=== PATIENT | male | born 1945 | race Caucasian/White ===

== ENCOUNTER → 2016-11-12 | Outpatient (CLI) | payer OTHER ==
[~2016-11-12] VITALS: Ht 177.8 cm; Wt 77.3 kg
[~2016-11-12] MED LIST: ADULT LOW DOSE81 MG PO; AMBEREN PO; ASPIRIN325 PO; CARDIZEM CD 18180 M3 PO; CENTRUM SILVER1 EAC2 PO; CLONIDINE0.1 PO; COLACE 100 MG100 MG PO; DILTIAZEM 24HR180 MG PO; DILTIAZEM 24HR360 M1; ELIQUIS5 MG PO; FISH OIL 1,001000 M1 PO; FLAX OIL1000 MG PO; FLOMAX0.4 MG PO; FLONASE 0.05%50 MCG NASAL; HYDROCODON-ACE1 EAC5 PO; LIPITOR 10 MG10 M1 PO; LIPITOR40 MG PO; LYRICA 75 MG CA75 MG PO; MIRALAX255 GM PO; MS CONTIN15 MG PO; NEURONTIN800 MG PO; NORCO 10-325 T1 EACH OR; NORCO 5-325 TA1 EACH PO; PLAVIX 75 MG TA75 M1 PO; PROPAFENONE 22225 M1 PO; TOPROL XL25 MG PO; URINOZINC PROS100 MG PO; ZETIA10 MG PO
--- NOTE | ~2016-11-12 | HPC ---
[facility] [place] [address] PAIN MANAGEMENT CONSULTATION Name: PRANAVMEI L Room #: REG [facility] Louise#: [id number] Admission: 11/12/16 Attend Phys: Jose Bal DO Discharge: Date of : 45 Report #: [id number] THIS REPORT FOR: //name// CC: Manish Bal The patient is a very pleasant 70-year-old gentleman, being treated for symptomatic Guillain-Baker syndrome, neuropathic pain requiring complex medication management. I have been treating him for quite some time. Last visit was 08/13/2016. His last urine drug screen was back in November. He has ongoing neuropathic pain affecting his extremities, feet greater than hands. He has been quite stable on MS Contin 15 mg q. 8 hours. We have tried rotating various medications, ultimately he has been stable on current medication with side effects and/or lack of efficacy with any changes. 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 Nahun Buenrostro. Fortunately, this was benign. Otherwise, the patient notes he has been very stable. Current pain is at 2/10 primarily in hands, feet, legs, and arms "all over", chronic pain, feet worse than hands. States the pain is exacerbated with too hot or too cold, seems to be worse at night. Though, overall, he remains quite functional. We reviewed the fact that opiate medications are being used to provide analgesia adequate to support activities of daily living, not attempting to achieve a specific pain score on the 0-10 Visual Analog Scale. The current opiate medications are providing sufficient analgesia to allow the patient to participate in activities of daily living. The patient is not exhibiting any aberrant behavior suggestive of drug diversion. The patient is not having any adverse reactions to medications. The patient is not suffering from daytime somnolence or mental acuity changes. The patient is managing opiate-induced constipation with appropriate quvh-utf-dwanmoc agents and dietary considerations. The patient was counseled on concern for caution with operating a motor vehicle while using opiate medications. A physical exam was performed and the patient's functional status was evaluated. All patients with back pain were advised against the bed rest greater than 4 days and were advised to return to normal activities. Pain score assessment was noted and the treatment plan was reviewed with the patient. All current medications, both prescribed and OTC were reviewed and reconciled on the electronic medical record. Tobacco screening was accomplished and smoking cessation was advised when indicated. BMI was noted and diet/exercise modification was recommended for all patients following outside normal parameters. I reviewed with the patient today their responsibilities to safeguard prescription medications, reviewed their responsibility to utilize medications only as prescribed by the physician. They are to seek and receive pain [address] [address] PAIN MANAGEMENT CONSULTATION Name: MEI ROCK Room #: REG C[facility] Gil#: [id number] Admission: 11/12/16 Attend Phys: Jose Bal DO Discharge: Date of : 45 Report #: [id number] medications only from 1 physician group ([facility]). They are to use 1 pharmacy and keep the clinic informed if they change pharmacies. Their responsibilities include making followup visits in a timely fashion and to avoid abrupt discontinuation of medication usage. Their responsibilities further include bringing their medications (bottles from the pharmacy with residual pills) to the visit for possible confirmation of pill counts and the patient understands it is their responsibility to submit to random drug screens to ensure both that the medications prescribed are present, and that no other controlled substances are present. All prescriptions provided today were generated electronically. ASSESSMENT: Neuropathic pain requiring complex medication management in a 70-year-old gentleman, body mass index is 24.4 kilograms per meter squared. Vital signs are stable as noted on the EMR. Alert and oriented to person, place, and time. Judged to be a reasonable historian. Cervical range of motion is full. Gait is tandem. Upper and lower extremity strength is preserved. Subjective dysesthesia in his feet. RECOMMENDATION: Continue MS Contin 15 mg q. 8 hours. I have taken the liberty of writing for 3 months of current medications. Follow up at that time, we likely get a urine drug screen at that time as well. No aberrant behavior suggestive for drug diversion, simply complying with our opiate consent to treat contract, we will want a UDS on the chart. <ELECTRONICALLY SIGNED> By: Jose Bal DO 11/19/16 [id number] [id number] Jose Bal DO /nt
[2016-11-12 11:28] VITALS: BP 137/89
== END | disposition home or self-care (01) ==
LOC: PAIN 06:47
DX: M79.2 Neuralgia and neuritis, unspecified (principal)

== ENCOUNTER → 2017-05-13 | Outpatient (CLI) | payer OTHER ==
[~2017-05-13] VITALS: Ht 177.8 cm; Wt 74.6 kg
[2017-05-13 10:53] VITALS: BP 163/92
== END | disposition home or self-care (01) ==
LOC: PAIN 06:42
DX: G62.9 Polyneuropathy, unspecified (principal); I25.10 Atherosclerotic heart disease of native coronary artery without angina pectoris; I21.3 ST elevation (STEMI) myocardial infarction of unspecified site

== ENCOUNTER → 2017-08-15 | Outpatient (CLI) | payer OTHER ==
[~2017-08-15] VITALS: Ht 177.8 cm; Wt 73.8 kg
--- NOTE | ~2017-08-15 | HPC ---
[facility] [address] [place] [address] PAIN MANAGEMENT CONSULTATION Name: SIMILISSETHGERIMEI L Room #: REG [facility] Judd.#: [id number] Admission: 08/15/17 Attend Phys: Jose Bal DO Discharge: Date of : 45 Report #: [id number] THIS REPORT FOR: //name// CC: Manish Bal HISTORY OF PRESENT ILLNESS: The patient is a very pleasant 71-year-old gentleman, long known to the pain clinic, being treated for chronic pain syndrome, neuropathic pain component status post rather dramatic Guillain-Lone Wolf presentation following a flu shot back in 2009. The patient has been stable on MS Contin 15 mg t.i.d. for many years. We have tried weaning this and tried very other agents, all with increasing pain. Returns to pain clinic today noting medications continue to provide sufficient analgesia to participate in activities of daily living. He has pain in his hands, feet, arms and legs; dull, aching sensation and rates it 1-2 on a VAS. He continues to work on his vintage vehicles, he has a 1929 [employer] Model T pickup and I believe a Scales Model A as well. He states he does not have any problems with daytime somnolence, mental acuity changes and constipation. We reviewed the fact that opiate medications are being used to provide analgesia adequate to support activities of daily living, not attempting to achieve a specific pain score on the 0-10 Visual Analog Scale. The current opiate medications are providing sufficient analgesia to allow the patient to participate in activities of daily living. The patient is not exhibiting any aberrant behavior suggestive of drug diversion. The patient is not having any adverse reactions to medications. The patient is not suffering from daytime somnolence or mental acuity changes. The patient is managing opiate-induced constipation with appropriate qjob-qyq-jqiijcu agents and dietary considerations. The patient was counseled on concern for caution with operating a motor vehicle while using opiate medications. A physical exam was performed and the patient's functional status was evaluated. All patients with back pain were advised against the bed rest greater than 4 days and were advised to return to normal activities. Pain score assessment was noted and the treatment plan was reviewed with the patient. All current medications, both prescribed and OTC were reviewed and reconciled on the electronic medical record. Tobacco screening was accomplished and smoking cessation was advised when indicated. BMI was noted and diet/exercise modification was recommended for all patients following outside normal parameters. I reviewed with the patient today their responsibilities to safeguard prescription medications, reviewed their responsibility to utilize medications only as prescribed by the physician. They are to seek and receive pain medications only from 1 physician group ( [facility]). They are to use [address] [place] [address] PAIN MANAGEMENT CONSULTATION Name: MEI ROCK Room #: REG [facility] Gil#: [id number] Admission: 08/15/17 Attend Phys: Jsoe Bal DO Discharge: Date of : 45 Report #: [id number] pharmacy and keep the clinic informed if they change pharmacies. Their responsibilities include making followup visits in a timely fashion and to avoid abrupt discontinuation of medication usage. Their responsibilities further include bringing their medications (bottles from the pharmacy with residual pills) to the visit for possible confirmation of pill counts and the patient understands it is their responsibility to submit to random drug screens to ensure both that the medications prescribed are present, and that no other controlled substances are present. All prescriptions provided today were generated electronically. PHYSICAL EXAMINATION: Relatively unchanged. A 71-year-old gentleman, BMI is 23.3 kilograms per meter squared. Alert and oriented to person, place and time, judged to be a reasonable historian. Vital signs show modest hypertension at 168/83, pulse 60, respirations of 14. Rises from chair easily. Gait is tandem. Does have little loss of proprioception in his hands and fingers though again he is able to work with fine objects including small screws. ASSESSMENT: Neuropathic pain, chronic pain syndrome requiring high risk complex medication management secondary to Guillain-Lone Wolf syndrome, now about 8 years ago. RECOMMENDATIONS: Continue current medication unchanged, MS Contin 15 mg 1 t.i.d. Follow up in 3 months for reevaluation. Last random drug screen in April 2016, was positive for prescribed medications and no others. <ELECTRONICALLY SIGNED> By: Jose Bal DO 08/16/17 0949 1456 02 Jose Bal DO /nt
[2017-08-15 12:36] VITALS: BP 168/83
== END | disposition home or self-care (01) ==
LOC: PAIN 07:08
DX: Z76.0 Encounter for issue of repeat prescription (principal); G89.4 Chronic pain syndrome; G61.0 Guillain-Barre syndrome; I10 Essential (primary) hypertension; Z79.899 Other long term (current) drug therapy; Z79.891 Long term (current) use of opiate analgesic; Z98.890 Other specified postprocedural states

== ENCOUNTER → 2018-02-03 | Outpatient (CLI) | payer OTHER ==
[~2018-02-03] VITALS: Ht 177.8 cm; Wt 76.2 kg
--- NOTE | ~2018-02-03 | HPC ---
[facility] [place] [address] PAIN MANAGEMENT CONSULTATION Name: MEI ROCK Room #: REG Robi Gil#: [id number] Admission: 02/03/18 Attend Phys: Jose Bal DO Discharge: Date of : 45 Report #: [id number] THIS REPORT FOR: //name// CC: Manish Bal The patient is a very pleasant 72-year-old gentleman, well known to pain clinic, being treated for neuropathy, status post Guillain-Twilight syndrome, requiring complex medication management. The patient was last seen in pain clinic 11/18/2017. The patient was continued on baseline narcotic unchanged, MS Contin 15 mg q.8 hours. He returns to pain clinic today. In the interval since we last saw him, he did have transurethral resection of the prostate for ostensibly benign prostatic hypertrophy. The patient notes that biopsy remains pending, but his PSA was within normal limits. Subsequent to this, he has been having some pruritus. His skin is unremarkable. No erythema or "blotchy" areas noted. He does note that he changed his shampoo recently. I suspect the latter is the primary source for the pruritus; however, he does have a followup appointment with his urologist. I asked that he follow up with his urologist and mention the pruritus, it may be related to the surgery, though this seems somewhat farfetched. He has a history of atrial fibrillation, is stable on Eliquis. Notes current medications are continuing to enable him to participate in activities of daily living. Pain is fairly well controlled, chronic pain typically is a burning dysesthesia in his feet and hands. PHYSICAL EXAMINATION: Otherwise shows a 72-year-old gentleman, BMI is 24.1 kg/m2. Blood pressure is nominally elevated 156/91, pulse 71, respirations are 14. He is alert and oriented to person, place, and time, judged to be a reasonable historian. Cervical range of motion is full. He has good 2-point tactile discrimination in his hands, though subjective paresthesia. Again, no other changes are noted. Skin integument is intact. We reviewed the fact that opiate medications are being used to provide analgesia adequate to support activities of daily living, not attempting to achieve a specific pain score on the 0-10 Visual Analog Scale. The current opiate medications are providing sufficient analgesia to allow the patient to participate in activities of daily living. The patient is not exhibiting any aberrant behavior suggestive of drug diversion. The patient is not having any adverse reactions to medications. The patient is not suffering from daytime somnolence or mental acuity changes. The patient is managing opiate-induced constipation with appropriate mnxc-wxt-hanmyrv agents and dietary considerations. The patient was counseled on concern for caution with operating [address] [address] PAIN MANAGEMENT CONSULTATION Name: MEI ROCK Room #: REG Robi Gil#: [id number] Admission: 02/03/18 Attend Phys: Jose Bal DO Discharge: Date of : 45 Report #: [id number] a motor vehicle while using opiate medications. A physical exam was performed and the patient's functional status was evaluated. All patients with back pain were advised against the bed rest greater than 4 days and were advised to return to normal activities. Pain score assessment was noted and the treatment plan was reviewed with the patient. All current medications, both prescribed and OTC were reviewed and reconciled on the electronic medical record. Tobacco screening was accomplished and smoking cessation was advised when indicated. BMI was noted and diet/exercise modification was recommended for all patients following outside normal parameters. I reviewed with the patient today their responsibilities to safeguard prescription medications, reviewed their responsibility to utilize medications only as prescribed by the physician. They are to seek and receive pain medications only from 1 physician group ( [facility]). They are to use 1 pharmacy and keep the clinic informed if they change pharmacies. Their responsibilities include making followup visits in a timely fashion and to avoid abrupt discontinuation of medication usage. Their responsibilities further include bringing their medications (bottles from the pharmacy with residual pills) to the visit for possible confirmation of pill counts and the patient understands it is their responsibility to submit to random drug screens to ensure both that the medications prescribed are present, and that no other controlled substances are present. All prescriptions provided today were generated electronically. ASSESSMENT: Symptomatic neuropathic pain, hands and feet, requiring complex medication management. I initially met the patient when he was in the hospital following a profound Guillain-Twilight syndrome. He was left with his paresthesia. We have tried multiple membrane stabilizing agents and opiate analgesics. Ultimately, he has been stable on MS Contin 15 mg q.8 hours. I would like to simply continue this medication. I will follow him up in another 3 months. Last buccal drug swab 11/18/2017, was positive for prescribed medications. We reviewed the opiate consent to treat contract signed greater than a year ago. No problems with daytime somnolence, mental acuity changes, or constipation. No aberrant behavior suggestive for drug diversion. Follow up simply in 3 months. By: [id number] Jose Bal DO /nt
[2018-02-03 09:42] VITALS: BP 156/91
== END ==
LOC: PAIN 07:16
DX: M79.2 Neuralgia and neuritis, unspecified (principal); Z79.899 Other long term (current) drug therapy; I48.91 Unspecified atrial fibrillation

== ENCOUNTER → 2018-05-12 | Outpatient (CLI) | payer OTHER ==
[~2018-05-12] VITALS: Ht 177.8 cm; Wt 76.0 kg
[~2018-05-12] MED LIST changes: +CRESTOR20 MG PO; +NEURONTIN 300300 M1 PO; +OMEPRAZOLE 20 M20 M1 PO
--- NOTE | ~2018-05-12 | HPC ---
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 I have been treating the patient now for nearly a decade. We have tried multiple membrane stabilizing agents, ultimately he has been stable using simply MS Contin 15 mg q.8 hours limit 45 mg per day. He has chronic neuropathic pain affecting hands and feet, has generally been stable with current medication. He returns to pain clinic today. We had a prolonged visit, he was seen from 10:10-10:35, greater than 50% of the 25-minute visit was spent counseling the patient. He is seen in the company of his who is supportive. Notes he has chronic pain in hands and feet, rates about a 2 on a VAS although he has been having increasing pain and aching in his left leg. He has had some chronic weakness in the left leg over the past 6 months. He is having what sounds like more neuropathic or radicular component of pain. States pain is from the left hip to the ankle posterior aspect. PHYSICAL EXAMINATION: Shows 72-year-old gentleman, BMI is 24 kilograms per meter squared. Blood pressure is 143/82, pulse 60, respirations 16. Alert and oriented to person, place and time, judged to be a reasonable historian. Rises from chair using armrest. Has a modestly antalgic gait. Slight decreased left hip flexion and extension as well as plantar flexion strength about 3/5 versus 4/5 on the contralateral, i.e., right side. Right patellar reflex is difficult to elicit at 1/4 in the left. Achilles reflex is absent on the left, 1/4 in the right. Straight leg raise is nominally positive on the left. Passive rotation of the hip is unremarkable. SI joints do not appear to be involved, negative piriformis tensioning. We reviewed the fact that opiate medications are being used to provide analgesia adequate to support activities of daily living, not attempting to achieve a specific pain score on the 0-10 Visual Analog Scale. The current opiate medications are providing sufficient analgesia to allow the patient to participate in activities of daily living. The patient is not exhibiting any aberrant behavior suggestive of drug diversion. The patient is not having any adverse reactions to medications. The patient is not suffering from daytime somnolence or mental acuity changes. The patient is managing opiate-induced constipation with appropriate heav-ano-qylnxkq agents and dietary considerations. The patient was counseled on concern for caution with operating a motor vehicle while using opiate medications. [address] [address] PAIN MANAGEMENT CONSULTATION Name: MEI ROCK Room #: REG [facility] Gil#: [id number] Admission: 05/12/18 Attend Phys: Jose Bal DO Discharge: Date of : 45 Report #: [id number] A physical exam was performed and the patient's functional status was evaluated. All patients with back pain were advised against the bed rest greater than 4 days and were advised to return to normal activities. Pain score assessment was noted and the treatment plan was reviewed with the patient. All current medications, both prescribed and OTC were reviewed and reconciled on the electronic medical record. Tobacco screening was accomplished and smoking cessation was advised when indicated. BMI was noted and diet/exercise modification was recommended for all patients following outside normal parameters. I reviewed with the patient today their responsibilities to safeguard prescription medications, reviewed their responsibility to utilize medications only as prescribed by the physician. They are to seek and receive pain medications only from 1 physician group ( [facility]). They are to use 1 pharmacy and keep the clinic informed if they change pharmacies. Their responsibilities include making followup visits in a timely fashion and to avoid abrupt discontinuation of medication usage. Their responsibilities further include bringing their medications (bottles from the pharmacy with residual pills) to the visit for possible confirmation of pill counts and the patient understands it is their responsibility to submit to random drug screens to ensure both that the medications prescribed are present, and that no other controlled substances are present. All prescriptions provided today were generated electronically. ASSESSMENT: Chronic neuropathic pain affecting hands and feet, status post Guillain-Hershey syndrome in a gentleman with chronic pain syndrome requiring complex medication management. New diagnosis of left lumbar radicular pain. RECOMMENDATIONS: Discussed with the patient today about therapeutic options. We have elected to trial gabapentin 300 mg at bedtime to help with neuropathic pain component. If this affords good relief, we will simply continue. If, however, he tries gabapentin 300 mg at bedtime with no efficacy, we talked briefly about considering a lumbar epidural injection under fluoroscopy. The patient takes Eliquis for chronic atrial fibrillation. He would need to be off this agent for 3 days. He is planning on moving forward with a cholecystectomy in a few weeks. We would like to postpone steroid injection in 4-6 weeks or around the time of any surgery. Ultimately I would like to continue current narcotic medication unchanged, add gabapentin and follow up in 3 months. If radicular symptoms arise, consider a lumbar epidural injection with fluoroscopy if indicated clinically at that time. Thank you for allowing me to participate in the patient's care. We discussed [facility] [address] [place] [address] PAIN MANAGEMENT CONSULTATION Name: MEI ROCK Room #: [facility].#: [id number] Admission: 05/12/18 Attend Phys: Jose Bal DO Discharge: Date of : 45 Report #: [id number] today that I will be leaving the practice and have him follow up with one of the [facility] partners. <ELECTRONICALLY SIGNED> By: Jose Bal DO 05/14/18 0734 1240 1558 Jose Bal DO /nt
[2018-05-12 10:07] VITALS: BP 143/82
== END ==
LOC: PAIN 07:55
DX: M79.2 Neuralgia and neuritis, unspecified (principal); G89.4 Chronic pain syndrome; Z79.899 Other long term (current) drug therapy

== ENCOUNTER → 2018-08-06 | Outpatient (CLI) | payer OTHER ==
[~2018-08-06] VITALS: Ht 177.8 cm; Wt 76.3 kg
--- NOTE | ~2018-08-06 | HPC ---
[facility] [place] [address] PAIN MANAGEMENT CONSULTATION Name: SIMILISSETHGERIMEI Trae Room #: REG [facility]#: [id number] Admission: 08/06/18 Attend Phys: Manish Bal DO Discharge: Date of : 45 Report #: [id number] THIS REPORT FOR: //name// CC: Manish Rebollar DO DATE OF SERVICE: 08/06/2018 REFERRING PHYSICIAN: Manish Rebollar DO CHIEF COMPLAINT: Neuropathy secondary to Guillain [place]. 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 The patient has been followed by my partner, Dr. Jose Bal, for medication management for which he is taking MS Contin 15 mg 3 times a day, total of 45 morphine equivalents a day, along with the use of gabapentin. He returns today in followup visit, requesting potential changes in medication therapy. He is hopeful to increase his gabapentin to improve pain and begin to reduce the use of his MS Contin. He returns to make adjustments in the medication today. He is denying any side effects of somnolence, decreased mental acuity, disorientation and confusion. He is concerned about the recent information about opioids and their long-term effects. He wishes to make changes if at all possible. ALLERGIES: No known drug allergies. CURRENT MEDICATIONS: Gabapentin 300 mg p.o. at bedtime, MS Contin 15 mg 3 times a day, lovastatin 20 mg once a day, MiraLax 17 grams per day, tamsulosin 0.4 mg once a day, metoprolol 25 mg once a day, Zetia 10 mg once a day, Eliquis 5 mg once a day, omeprazole 20 mg once a day. SOCIAL HISTORY: The patient denies tobacco, alcohol, IV or illicit drug use. He is retired. He is unaccompanied today. IMAGING: No new imaging available. PQRS: The patient has osteoarthritic changes in the low back, bilateral hips, bilateral knees. No rheumatoid arthritis. He is placing pain intensity 2/10. He is not a fall risk, has not had a fall in the last 3 months. He is treated for hypertension. He is on blood thinners in the form of Eliquis. He has been on opioids for an extended period of time. He has a low risk of opioid addiction. He is placing his pain impact functional assessment at 7/70, mild interference of daily activities secondary to pain. [address] [address] PAIN MANAGEMENT CONSULTATION Name: MEI ROCK Room #: [facility]#: [id number] Admission: 08/06/18 Attend Phys: Manish Bal DO Discharge: Date of : 45 Report #: [id number] PHYSICAL EXAMINATION: VITAL SIGNS: Blood pressure 132/81, pulse is 56, respiratory rate 16 and unlabored, the patient is 99% on room air. Height 5 feet 10 inches tall, weight 168.2 pounds, BMI calculated 24.1. GENERAL: Well-developed, well-nourished, well-hydrated 72-year-old male, appearing stated age, placing current pain score 2/10. HEENT: Normocephalic, atraumatic. Pupils equal, round, reactive to light. Extraocular muscles are intact. Sclerae nonicteric without injection. Speech fluent. EXTREMITIES: Show no clubbing, no cyanosis, no edema. MUSCULOSKELETAL: The patient does have difficulty rising from the chair. He does have to use arm rest for assistance. He has a modestly antalgic gait. Decreased left hip flexion and extension, as well as plantar flexion when compared to the right. He is intact to light touch from L1 through S2 dermatomes. ASSESSMENT: 1. Peripheral neuropathy. 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 3. Opioid dependency. 4. Complicated medication management. 5. Chronic intractable pain. PLAN: 1. The patient has returned today in followup visit, requesting potential changes in medication therapy to address neuropathic symptoms and reduce his reliance on opioid medication. Would recommend the following changes in medication today with plans to continue titration off of opioids over the next couple of months. Following was discussed and the changes made. 2. The patient will increase his gabapentin, currently he is taking 2 tabs p.o. at bedtime. Recommend escalating his dose 1 tab every week, increasing the neuropathic pain medication to control peripheral neuropathy. Once the patient reaches an efficacious level with the gabapentin, he can then reduce his MS Contin by one tablet. The intention is to attempt to wean the patient off of morphine and other opioids if at all possible with the use of appropriate neuropathic pain medication. The patient is amenable to begin this process. 3. The patient was provided refill prescription on the MS Contin 15 mg dose 1 tab p.o. t.i.d. He will continue this medication as he titrates his gabapentin. Once he reaches an efficacious level with the gabapentin, he can be reducing his morphine 1 tab every 7 days. He was given a prescription of #90, no refills. 4. The patient was given a prescription of gabapentin 300 mg dose. Plan is to increase to 1 tab in the morning, 2 tabs at night. He was given a titration schedule and how to do so. He is to add one tab every 7 days to reach a neuropathic pain level. He will contact us each week to advise whether or not side effects or improvement in symptoms. He was given #90 tablets, no refills. [facility] [address] [place] [address] PAIN MANAGEMENT CONSULTATION Name: MEI ROCK Room #: REG [facility].#: [id number] Admission: 08/06/18 Attend Phys: Manish Bal DO Discharge: Date of : 45 Report #: [id number] 5. We took the liberty of reviewing the patient's MO-TRACS and K-TRACS. There are no aberrant entries in the file or concerning entries in the file. 6. We reviewed the fact that opiate medications are being used to provide analgesia adequate to support activities of daily living, not attempting to achieve a specific pain score on the 0-10 Visual Analog Scale. The current opiate medications are providing sufficient analgesia to allow the patient to participate in activities of daily living. The patient is not exhibiting any aberrant behavior suggestive of drug diversion. The patient is not having any adverse reactions to medications. The patient is not suffering from daytime somnolence or mental acuity changes. The patient is managing opiate-induced constipation with appropriate poyw-vkm-smikbje agents and dietary considerations. The patient was counseled on concern for caution with operating a motor vehicle while using opiate medications. A physical exam was performed and the patient's functional status was evaluated. All patients with back pain were advised against the bed rest greater than 4 days and were advised to return to normal activities. Pain score assessment was noted and the treatment plan was reviewed with the patient. All current medications, both prescribed and OTC were reviewed and reconciled on the electronic medical record. Tobacco screening was accomplished and smoking cessation was advised when indicated. BMI was noted and diet/exercise modification was recommended for all patients following outside normal parameters. I reviewed with the patient today their responsibilities to safeguard prescription medications, reviewed their responsibility to utilize medications only as prescribed by the physician. They are to seek and receive pain medications only from 1 physician group ( [facility]). They are to use 1 pharmacy and keep the clinic informed if they change pharmacies. Their responsibilities include making followup visits in a timely fashion and to avoid abrupt discontinuation of medication usage. Their responsibilities further include bringing their medications (bottles from the pharmacy with residual pills) to the visit for possible confirmation of pill counts and the patient understands it is their responsibility to submit to random drug screens to ensure both that the medications prescribed are present, and that no other controlled substances are present. All prescriptions provided today were generated electronically. 6. The patient will return to our clinic in 1 month. <ELECTRONICALLY SIGNED> By: Manish Bal DO 08/12/18 0727 0735 [id number] Manish Bal DO /nt
[2018-08-06 10:14] VITALS: BP 132/81
== END ==
LOC: PAIN 06:53
DX: G62.9 Polyneuropathy, unspecified (principal); G61.0 Guillain-Barre syndrome; G89.4 Chronic pain syndrome; F11.20 Opioid dependence, uncomplicated; M79.605 Pain in left leg; M79.604 Pain in right leg; M79.602 Pain in left arm; M79.601 Pain in right arm; Z79.899 Other long term (current) drug therapy

== ENCOUNTER → 2018-09-03 | Outpatient (CLI) | payer OTHER ==
[~2018-09-03] VITALS: Ht 177.8 cm; Wt 77.7 kg
--- NOTE | ~2018-09-03 | HPC ---
[facility] [address] [place] [address] PAIN MANAGEMENT CONSULTATION Name: PRANAVMEI Trae Room #: REG [facility] Louise#: [id number] Admission: 09/03/18 Attend Phys: Marlyn Vernon Discharge: Date of : 45 Report #: [id number] THIS REPORT FOR: //name// CC: Marlyn Rebollar DO DATE OF SERVICE: 09/03/2018 CHIEF COMPLAINT: Neuropathy secondary to Guillain-[place]. HISTORY OF PRESENT ILLNESS: The patient is a very pleasant 72-year-old male with a longstanding history of neuropathic pain secondary to his post Guillain-[place] syndrome. He is here for medication management refill. He is taking MS Contin 15 mg 3 times a day to a total of 45 mEq a day and gabapentin 300 mg 1-2 tablets a day. He tells me that he tried to decrease his MS Contin per Dr. Manish Bal's direction to see if he was able to tolerate and/or how his pain level was. The patient told me that he increased his gabapentin to 2 tablets at night and his MS Contin to 1 tablet twice a day, but after 3 days, his legs were burning so bad and his pain score escalated and he was miserable. Therefore, he restarted his morphine 3 times a day and continues his gabapentin 1-2 at bedtime. His pain score today is 2/10. He tells me that his aching and burning is still there, but has significantly decreased after he restarted his original doses of medications. He is able to function with his medications and able to sleep much better at night. He tells me that he does have some constipation, but is having it controlled with MiraLax on a daily basis and no daytime somnolence is noted. ALLERGIES TO CURRENT MEDICATIONS: None. CURRENT MEDICATIONS: Gabapentin 300 mg 2 at bedtime, morphine sulfate ER 15 mg t.i.d., Crestor 20 mg daily, omeprazole 20 mg daily, Eliquis 5 mg twice a day, Zetia 10 mg at bedtime, Toprol-XL 25 mg daily, Flomax at bedtime and MiraLax daily. PQRS: 1. History of osteoarthritic changes in his low back, lateral hips and knees. No rheumatoid arthritis present. 2. Height is 5 feet 10 inches, weight 171, BMI is 24.6. 3. Blood pressure 130/75, pulse is 55, respirations 14, oxygen sat is 100%. Pain intensity score is 2/10. 4. Fall risk. Denies dizziness. Does not need help walking or standing. Has not fallen in the last 3 months. 5. The patient's blood thinner is Eliquis. 6. The patient has a history of hypertension. 7. Opioid therapy greater than 6 weeks, the signed opioid contract on the [address] [address] PAIN MANAGEMENT CONSULTATION Name: MEI ROCK [id number] Admission: 09/03/18 Attend Phys: Marlyn Vernon Discharge: Date of : 45 Report #: [id number] chart. 8. Risk assessment tool is low and his functional assessment is . 9. Recreational drug use, denies; has not ever smoked and does not drink alcohol. PHYSICAL EXAMINATION: GENERAL: Well-developed, well-nourished, well-hydrated 72-year-old, appeared his stated age. Placing his pain score 2/10. HEENT: Normocephalic, atraumatic. Pupils equal, round, reactive to light. Extraocular muscles are intact. Speech is fluent. EXTREMITIES: No clubbing, no cyanosis, no edema. MUSCULOSKELETAL: Slow to raise from the chair. He does use armrest for assistance, modest antalgic gait, intact to touch at L5 through S2 dermatomes. ASSESSMENT: 1. Peripheral neuropathy. 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 3. Opioid dependency. 4. Complex medical management. 5. Chronic intractable pain. We reviewed the fact that opiate medications are being used to provide analgesia adequate to support activities of daily living, not attempting to achieve a specific pain score on the 0-10 Visual Analog Scale. The current opiate medications are providing sufficient analgesia to allow the patient to participate in activities of daily living. The patient is not exhibiting any aberrant behavior suggestive of drug diversion. The patient is not having any adverse reactions to medications. The patient is not suffering from daytime somnolence or mental acuity changes. The patient is managing opiate-induced constipation with appropriate zvtg-nxy-rasnsmp agents and dietary considerations. The patient was counseled on concern for caution with operating a motor vehicle while using opiate medications. A physical exam was performed and the patient's functional status was evaluated. All patients with back pain were advised against the bed rest greater than 4 days and were advised to return to normal activities. Pain score assessment was noted and the treatment plan was reviewed with the patient. All current medications, both prescribed and OTC were reviewed and reconciled on the electronic medical record. Tobacco screening was accomplished and smoking cessation was advised when indicated. BMI was noted and diet/exercise modification was recommended for all patients following outside normal parameters. I reviewed with the patient today their responsibilities to safeguard prescription medications, reviewed their responsibility to utilize medications only as prescribed by the physician. They are to seek and receive pain [address] [place] [address] PAIN MANAGEMENT CONSULTATION Name: MEI ROCK Trae Room #: REG [facility]#: [id number] Admission: 09/03/18 Attend Phys: Marlyn PAM Saulo Discharge: Date of : 45 Report #: [id number] medications only from 1 physician group ( [facility]). They are to use 1 pharmacy and keep the clinic informed if they change pharmacies. Their responsibilities include making followup visits in a timely fashion and to avoid abrupt discontinuation of medication usage. Their responsibilities further include bringing their medications (bottles from the pharmacy with residual pills) to the visit for possible confirmation of pill counts and the patient understands it is their responsibility to submit to random drug screens to ensure both that the medications prescribed are present, and that no other controlled substances are present. All prescriptions provided today were generated electronically. PLAN: 1. The patient returns today for a followup visit for his MS Contin 15 mg 3 times a day. The patient tells me that he did try to taper off as Dr. Bal had recommended 2 tablets twice a day, but his pain score significantly increased and his level of activity decreased. At that time, the patient also tried to increase his gabapentin, so the patient returned to his current stable dose that he has been on for several years. 2. The patient was provided today with a script of MS Contin 15 mg 1 tablet 3 times a day, #90 to be released today for a week and then 8 weeks. 3. The patient was also given gabapentin script, #90 of 300 mg to be filled. 4. The patient's [place] and [place] PDMP were checked. No aberrant refills from other prescribers. The patient seems to be appropriate on time with his medication fill. Current drug screen is on the chart, also which shows a positive for morphine. 5. The patient will be seen in 3 months' time by myself and then, the followup visit with Dr. Manish Bal. The patient is agreeable with this plan of care. 6. The patient seen in collaboration with Dr. Manish Bal. <ELECTRONICALLY SIGNED> By: Marlyn Vernon 09/05/18 0714 1051 [id number] Marlyn Vernon /nt
[2018-09-03 09:54] VITALS: BP 130/75
== END ==
LOC: PAIN 06:45
DX: G90.09 Other idiopathic peripheral autonomic neuropathy (principal); G61.0 Guillain-Barre syndrome; F11.20 Opioid dependence, uncomplicated; G89.4 Chronic pain syndrome; Z79.899 Other long term (current) drug therapy

== ENCOUNTER → 2018-12-09 | Outpatient (CLI) | payer OTHER, BC ==
[~2018-12-09] VITALS: Ht 177.8 cm; Wt 77.6 kg
[~2018-12-09] MED LIST changes: +BENADRYL25 MG PO
[2018-12-09 10:06] VITALS: BP 152/86
--- NOTE | 2018-12-09 10:10 | NUR ---
Pain Clinic Assessment: 1. History of Osteoarthritis: Not Applicable History of Rheumatoid Arthritis: Not Applicable 2. Height: 5 ft. 10 in. 177.8 cm. Weight: 171.0 lb. oz. 77.565 kg. Patient's BMI: 24.5 3. Vital Signs: BP: 152/86 Pulse: 52 Resp: 16 Temp: 02 Sat: 100 ECG Mon: 4. Pain Intensity: 2 5. Fall Risk: Dizziness: N Needs help standing or walking: N Fallen in the last 3 months: N Fall risk comments: 6. Patient on Blood Thinner: ELIQUIS 7. History of Hypertension: Y 8. Opioid Therapy greater than 6 weeks: Y Opiate Contract Signed: 11/18/17 9. Risk Assessment Tool Provided: LOW RISK 10. Functional Assessment Tool: 11. Recreational Drug Use: Never Drug Type: Tobacco Use: Never Smoker Tobacco Type: Amount or Packs/day: How Many Years: Alcohol Use: No Frequency: Quant:
--- NOTE | 2018-12-10 12:49 | HPC ---
[facility] [address] [place] [address] PAIN MANAGEMENT CONSULTATION Name: SIMILISSETHGERIMEI Trae Room #: REG Rob[facility] Gil#: [id number] Admission: 12/09/18 Attend Phys: Marlyn Vernon Discharge: Date of : 45 Report #: [id number] THIS REPORT FOR: //name// CC: Marlyn Rebollar DATE OF SERVICE: 12/09/2018 CHIEF COMPLAINT: Neuropathy secondary to Guillain-[place]. HISTORY OF PRESENT ILLNESS: This is a very pleasant 73-year-old gentleman who returns to the pain clinic today for his long-standing neuropathic pain secondary to status post Guillain-[place] syndrome, for medication refill. He tells me that his MS Contin 15 mg is controlling his pain, rating it as a 2/10 today. He tells me that he has decreased his gabapentin, only taking 1 at night and that is very helpful in letting him sleep throughout the evening. He denies any constipation. He does use MiraLax peyj-fwo-urkcifi for his bowels. He tells me that when he does have pain, it feels in his hands and feet and bilateral legs. ALLERGIES: No known drug allergies. MEDICATIONS: List of current medicines: Crestor 20 mg daily, omeprazole 20 mg daily, Eliquis 5 mg b.i.d., Zetia 10 mg at bedtime, Toprol-XL 25 mg daily, Flomax bedtime, MiraLax daily, gabapentin 300 mg one at bedtime morphine sulfate 15 mg 3 times a day. PQRS: 1. He has a history of arthritic changes in his lower back, hips and knees. Denies rheumatoid arthritis. 2. Height is 5 feet 10, weight is 171 and BMI is 24.5. Vital signs 152/86, pulse is 52, respirations 16 and oxygen sat is 100%. Pain score is 2/10. 3. Fall risk. He denies dizziness. He does not need help walking or standing. He has not fallen in the last 3 months. 4. The patient is on Eliquis and does take medicines for hypertension. His opioid therapy is greater than 6 weeks; therefore, an opioid contract is on the chart. 5. Risk assessment tool is low and his functional assessment is . 6. The patient does not use any recreational drugs. He does not smoke and does not drink alcohol. We checked the prescription monitoring system on this patient and he is filling appropriately from Dr. Manish Bal and is a timely fashion and he tells me that he safeguards all of his medications. We will check a buccal drug screen on him today, as his last one was just one year ago. PHYSICAL EXAMINATION: GENERAL: This is a well-developed, well-nourished and well-hydrated 73[place] [id number] PAIN MANAGEMENT CONSULTATION Name: PRANAVMEI L Room #: REG [facility] Gil#: [id number] Admission: 12/09/18 Attend Phys: Marlyn Vernon Discharge: Date of : 45 Report #: [id number] gentleman, who appears his stated age, placing his pain score as 2/10 today. HEENT: Normocephalic, atraumatic. Pupils equal, round and reactive to light. Extraocular muscles are intact. Speech is fluent. EXTREMITIES: No clubbing, no cyanosis and no edema. MUSCULOSKELETAL: The patient is slow to rise from the chair. He does use the armrest for assistance. He walks with an slightly antalgic gait. His lower extremity strength judged to be 5/5 bilaterally in all major muscle groups. ASSESSMENT: 1. Peripheral neuropathy. 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 3. Opioid dependency. 4. Chronic medical management. 5. Chronic intractable pain. We reviewed the fact that opiate medications are being used to provide analgesia adequate to support activities of daily living, not attempting to achieve a specific pain score on the 0-10 Visual Analog Scale. The current opiate medications are providing sufficient analgesia to allow the patient to participate in activities of daily living. The patient is not exhibiting any aberrant behavior suggestive of drug diversion. The patient is not having any adverse reactions to medications. The patient is not suffering from daytime somnolence or mental acuity changes. The patient is managing opiate-induced constipation with appropriate cakn-rpi-cjknojl agents and dietary considerations. The patient was counseled on concern for caution with operating a motor vehicle while using opiate medications. A physical exam was performed and the patient's functional status was evaluated. All patients with back pain were advised against the bed rest greater than 4 days and were advised to return to normal activities. Pain score assessment was noted and the treatment plan was reviewed with the patient. All current medications, both prescribed and OTC were reviewed and reconciled on the electronic medical record. Tobacco screening was accomplished and smoking cessation was advised when indicated. BMI was noted and diet/exercise modification was recommended for all patients following outside normal parameters. I reviewed with the patient today their responsibilities to safeguard prescription medications, reviewed their responsibility to utilize medications only as prescribed by the physician. They are to seek and receive pain medications only from 1 physician group ( [facility]). They are to use 1 pharmacy and keep the clinic informed if they change pharmacies. Their responsibilities include making followup visits in a timely fashion and to avoid abrupt discontinuation of medication usage. Their responsibilities further include bringing their medications (bottles from the pharmacy with residual pills) to the visit for possible confirmation of pill counts and the patient [facility] [address] [place] [address] PAIN MANAGEMENT CONSULTATION Name: MEI ROCK Room #: REG [facility] Louise#: [id number] Admission: 12/09/18 Attend Phys: Marlyn Vernon Discharge: Date of : 45 Report #: [id number] understands it is their responsibility to submit to random drug screens to ensure both that the medications prescribed are present, and that no other controlled substances are present. All prescriptions provided today were generated electronically. PLAN: 1. The patient returns for followup visit today for a refill of his MS Contin. He takes this 3 times a day. Scripts were given for quantity 90 to be released today, in 4 week and in 8 week. 2. The patient tells me he does not need a refill of his gabapentin since he has weaned down to only 1 tablet at night. He finds this very beneficial for helping him with his sleep for his leg pain. 3. We did check a drug screen on this patient as it had been a year since the last one had been performed. 4. The patient will be seen in 3-month time by myself or by Dr. Bal if need be. The patient is agreeable with this plan of care. 5. The patient is seen in collaboration today with Dr. Manish Bal. <ELECTRONICALLY SIGNED> By: Marlyn Vernon 12/10/18 1249 [id number] Marlyn Vernon /saturnino
== END ==
LOC: PAIN 06:52
DX: G61.0 Guillain-Barre syndrome (principal); G62.9 Polyneuropathy, unspecified; G89.4 Chronic pain syndrome; F11.20 Opioid dependence, uncomplicated; Z79.899 Other long term (current) drug therapy

== ENCOUNTER → 2019-03-04 | Outpatient (CLI) | payer OTHER, BC ==
[~2019-03-04] VITALS: Ht 177.8 cm; Wt 74.8 kg
[2019-03-04 11:09] VITALS: BP 145/92
--- NOTE | 2019-03-04 11:10 | NUR ---
Pain Clinic Assessment: 1. History of Osteoarthritis: Not Applicable History of Rheumatoid Arthritis: Not Applicable 2. Height: 5 ft. 10 in. 177.8 cm. Weight: 165.0 lb. oz. 74.844 kg. Patient's BMI: 23.7 3. Vital Signs: BP: 145/92 Pulse: 54 Resp: 16 Temp: 02 Sat: 99 ECG Mon: 4. Pain Intensity: 2 5. Fall Risk: Dizziness: N Needs help standing or walking: N Fallen in the last 3 months: N Fall risk comments: 6. Patient on Blood Thinner: ELIQUIS 7. History of Hypertension: Y 8. Opioid Therapy greater than 6 weeks: Y Opiate Contract Signed: 11/18/17 9. Risk Assessment Tool Provided: LOW RISK 10. Functional Assessment Tool: /70 11. Recreational Drug Use: Never Drug Type: Tobacco Use: Never Smoker Tobacco Type: Amount or Packs/day: How Many Years: Alcohol Use: No Frequency: Quant:
--- NOTE | 2019-03-05 13:28 | HPC ---
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 HISTORY OF PRESENT ILLNESS: This is a very pleasant 73-year-old gentleman who returns to the pain clinic today for refill of his medications. He tells me that he is doing quite well with his morphine 15 mg controlling his pain, rating at a 2/10. He does take his gabapentin at night and finds this very beneficial for his burning in his feet. He does also have some achy feeling, which is worse when he is too hot or too cold or at nighttime, but he finds his medications very helpful and denies any problems with constipation or daytime sleepiness. He would just like a refill of his medications today. ALLERGIES: No known drug allergies. CURRENT LIST OF MEDICATIONS: Flomax daily, morphine sulfate 15 mg t.i.d., gabapentin 300 mg at bedtime, Crestor 20 mg daily, omeprazole 20 mg daily, Eliquis 5 mg b.i.d., Zetia 10 mg at bedtime, Toprol 25 mg daily and MiraLax daily. PQRS: 1. He has a history of arthritic changes in his lower back, hips and knees. He denies any rheumatoid arthritis. 2. Height is 5 feet 10 inches, weight is 165 and BMI is 23. 3. VITAL SIGNS: Blood signs 145/92, pulse is 54, respirations 16 and oxygen sat is 99. 4. Pain score is 2/10. 5. Fall risk. Denies dizziness. Does not need help with walking or standing. He has not fallen in the last 3 months. 6. The patient is on Eliquis and does take medicines for hypertension. 7. Opioid therapy is greater than 6 weeks; therefore, an opioid signed contract is on the chart. 8. Risk assessment tool is low. Functional assessment is . 9. Recreational drug use, he denies. He is not a smoker and does not drink alcohol. We did check the prescription monitoring system. The patient is filling appropriately for his medications and we did check a buccal drug screen on the last visit that did show that it was negative for his medications, though we have been obtaining some dry specimens and we believe this is the [place] [address] PAIN MANAGEMENT CONSULTATION Name: MEI ROCK Room #: REG Robi Gil#: [id number] Admission: 03/04/19 ������������������ Attend Phys: Marlyn Vernon Discharge: ������������������ Date of : 45 Report #: [id number] recheck this patient's drug screen again at his next visit and repeat it as a urine specimen. The patient does have some problems with urinating due to surgery on his prostate and does take medications, so he will not void before he comes to our clinic. PHYSICAL EXAMINATION: GENERAL: This is a well-developed, well-nourished, well-hydrated 73-year-old gentleman who appears his stated age. Placing his pain score at 2/10 today. HEENT: Normocephalic and atraumatic. Pupils equal, round and reactive to light. Speech is fluent. Extraocular muscles are intact. EXTREMITIES: No clubbing, no cyanosis and no edema. MUSCULOSKELETAL: The patient walks with a slightly antalgic gait. His lower extremity strength judged to be 5/5 bilaterally in all major muscle groups. He is able to rise from seated to standing without difficulty. ASSESSMENT: 1. Peripheral neuropathy. 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 Opioid dependency. 4. Chronic opioid use under terms of written opioid agreement. 5. Chronic intractable pain. We reviewed the fact that opiate medications are being used to provide analgesia adequate to support activities of daily living, not attempting to achieve a specific pain score on the 0-10 Visual Analog Scale. The current opiate medications are providing sufficient analgesia to allow the patient to participate in activities of daily living. The patient is not exhibiting any aberrant behavior suggestive of drug diversion. The patient is not having any adverse reactions to medications. The patient is not suffering from daytime somnolence or mental acuity changes. The patient is managing opiate-induced constipation with appropriate tzia-acc-sqmcpof agents and dietary considerations. The patient was counseled on concern for caution with operating a motor vehicle while using opiate medications. A physical exam was performed and the patient's functional status was evaluated. All patients with back pain were advised against the bed rest greater than 4 days and were advised to return to normal activities. Pain score assessment was noted and the treatment plan was reviewed with the patient. All current medications, both prescribed and OTC were reviewed and reconciled on the electronic medical record. Tobacco screening was accomplished and smoking cessation was advised when indicated. BMI was noted and diet/exercise modification was recommended for all patients following outside normal parameters. I reviewed with the patient today their responsibilities to safeguard prescription medications, reviewed their responsibility to utilize medications [address] [address] PAIN MANAGEMENT CONSULTATION Name: MEI ROCK Room #: REG [facility]#: [id number] Admission: 03/04/19 ������������������ Attend Phys: Marlyn Vernon Discharge: ������������������ Date of : 45 Report #: [id number] only as prescribed by the physician. They are to seek and receive pain medications only from 1 physician group ( [facility]). They are to use 1 pharmacy and keep the clinic informed if they change pharmacies. Their responsibilities include making followup visits in a timely fashion and to avoid abrupt discontinuation of medication usage. Their responsibilities further include bringing their medications (bottles from the pharmacy with residual pills) to the visit for possible confirmation of pill counts and the patient understands it is their responsibility to submit to random drug screens to ensure both that the medications prescribed are present, and that no other controlled substances are present. All prescriptions provided today were generated electronically. PLAN: 1. We discussed treatment options with the patient today. The patient feels that his MS Contin is very helpful in controlling this pain as well as his gabapentin. Both were refilled today of 90 morphine with release today, 4 and 8-week release and gabapentin #90 with no additional refills. 2. We did discuss tapering his medicine if he is able, we had tried to do this in the past. We encouraged him to increase his gabapentin if he decides to try and decrease his morphine by 1 pill, taking it twice a day for a month and then decreasing to once a day for a month, then off. We did provide him with this 3 months of medications and reminded him that we did try to decrease him last year and the patient called numerous times to the clinic and able to decrease his medicines. The patient wants to try this again. 3. We will repeat a urine drug screen at his next visit. 4. The patient is seen in collaboration today with Dr. Manish Bal, [facility]. ��������������������������������������������� <ELECTRONICALLY SIGNED> ���������������������������������������� By: Marlyn Vernon ��������������������������������������������� 03/05/19 1328 [id number] Marlyn Vernon /nt
== END ==
LOC: PAIN 07:21
DX: G61.0 Guillain-Barre syndrome (principal); G62.9 Polyneuropathy, unspecified; I10 Essential (primary) hypertension; G89.4 Chronic pain syndrome; Z79.899 Other long term (current) drug therapy; Z79.891 Long term (current) use of opiate analgesic

== ENCOUNTER → 2019-06-09 | Outpatient (CLI) | payer OTHER, BC ==
[~2019-06-09] VITALS: Ht 177.8 cm; Wt 75.5 kg
[2019-06-09 10:46] VITALS: BP 160/92
--- NOTE | 2019-06-09 10:53 | NUR ---
Pain Clinic Assessment: 1. History of Osteoarthritis: Not Applicable History of Rheumatoid Arthritis: Not Applicable 2. Height: 5 ft. 10 in. 177.8 cm. Weight: 166.4 lb. oz. 75.479 kg. Patient's BMI: 23.9 3. Vital Signs: BP: 160/92 Pulse: 63 Resp: 16 Temp: 02 Sat: 100 ECG Mon: 4. Pain Intensity: 2 5. Fall Risk: Dizziness: N Needs help standing or walking: N Fallen in the last 3 months: N Fall risk comments: 6. Patient on Blood Thinner: ELIQUIS 7. History of Hypertension: Y 8. Opioid Therapy greater than 6 weeks: Y Opiate Contract Signed: 11/18/17 9. Risk Assessment Tool Provided: LOW RISK 10. Functional Assessment Tool: 11. Recreational Drug Use: Never Drug Type: Tobacco Use: Never Smoker Tobacco Type: Amount or Packs/day: How Many Years: Alcohol Use: No Frequency: Quant:
--- NOTE | 2019-06-10 14:20 | HPC ---
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 HISTORY OF PRESENT ILLNESS: This is a very pleasant 73-year-old gentleman who returns to the Pain Clinic today for refill of his medications that he uses to treat his ongoing neuropathy, especially in his arms as a result of his Guillain-[place]. The patient does complain of some leg and foot pain, but the majority of his pain is located in his arms and hands. Pain score is a 2/10 today, which is an aching, burning, pulling sensation that is worse with extreme temperatures or at night, but his medication he finds very beneficial. The patient tells me that he did try to decrease his morphine to see if he could tolerate being without the medicine, but he explains to me that his arm pain became so severe that he had to restart this medication. He states that it is very beneficial in controlling this pain. He does continue on his gabapentin as well. He did find that Lyrica was much more beneficial in relieving some of his pain. He was not on as much pain medicine when he was able to take Lyrica and hopeful that someday his insurance would pay for that medicine again since it was beneficial. The patient would like a refill of his medicines today. He denies any feeling of overmedicated or constipation from this medicine. ALLERGIES: No known drug allergies. CURRENT LIST OF MEDICATIONS: Morphine sulfate 15 mg t.i.d., Flomax 0.4 mg daily, gabapentin 300 mg 1 in the morning and 2 at night, Crestor 20 mg daily, omeprazole 20 mg daily, Eliquis 5 mg b.i.d., Zetia 10 mg at bedtime, Toprol-XL 25 mg daily and MiraLax daily. PQRS: 1. The patient has a history of arthritic changes in his lumbar spine, hips and knees. He denies any rheumatoid arthritis. 2. Height is 5 feet 10 inches, weight is 166. BMI is 23. 3. VITAL SIGNS: Blood pressure 160/92, pulse is 63, respirations 16, oxygen sat is 100. 4. Pain score is 2/10. 5. Denies dizziness, does not need help walking or standing, has not fallen in the last 3 months. 6. The patient is on blood thinners of Eliquis, does take medicine for hypertension. [facility] [address] [place] [address] PAIN MANAGEMENT CONSULTATION Name: MEI ROCK Room #: REG Robi Gil#: [id number] Admission: 06/09/19 ������������������ Attend Phys: Marlyn Vernon Discharge: ������������������ Date of : 45 Report #: [id number] 7. Opiate therapy is greater than 6 weeks; therefore, an opioid signed contract is on the chart. Risk assessment tool is low. Functional assessment is . 8. Recreational drug use, he denies. He is not a smoker and does not drink alcohol. We did check the prescription monitoring system. The patient is filling appropriately for his medications. He did give us a random drug screen today, specimen for verification of his medications. PHYSICAL EXAMINATION: GENERAL: Well-developed, well-nourished, well-hydrated 73-year-old gentleman who appears his stated age, placing his current pain score today at 2/10. HEENT: Normocephalic, atraumatic. Pupils equal, round and reactive to light. Speech is fluent. Extraocular muscles are intact. EXTREMITIES: No clubbing, no cyanosis, no edema. MUSCULOSKELETAL: He walks with a slightly antalgic gait. His lower extremity strength judged to be 5/5 in all major muscle groups. Rises from sitting to standing without any difficulty. Complains of numbness and burning in his bilateral arms to his fingers. ASSESSMENT: 1. Peripheral neuropathy. 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 3. Opioid dependency. 4. Chronic opioid use under terms of written opioid agreement. 5. Chronic intractable pain. We reviewed the fact that opiate medications are being used to provide analgesia adequate to support activities of daily living, not attempting to achieve a specific pain score on the 0-10 Visual Analog Scale. The current opiate medications are providing sufficient analgesia to allow the patient to participate in activities of daily living. The patient is not exhibiting any aberrant behavior suggestive of drug diversion. The patient is not having any adverse reactions to medications. The patient is not suffering from daytime somnolence or mental acuity changes. The patient is managing opiate-induced constipation with appropriate fcww-ixi-ocmiytt agents and dietary considerations. The patient was counseled on concern for caution with operating a motor vehicle while using opiate medications. A physical exam was performed and the patient's functional status was evaluated. All patients with back pain were advised against the bed rest greater than 4 days and were advised to return to normal activities. Pain score assessment was noted and the treatment plan was reviewed with the patient. All current medications, both prescribed and OTC were reviewed and reconciled on the electronic medical record. Tobacco screening was accomplished and smoking cessation was advised when indicated. BMI was noted and diet/exercise [facility] [address] [place] [address] PAIN MANAGEMENT CONSULTATION Name: PRANAVMEI L Room #: REG [facility]#: [id number] Admission: 06/09/19 ������������������ Attend Phys: Marlyn Vernon Discharge: ������������������ Date of : 45 Report #: [id number] modification was recommended for all patients following outside normal parameters. I reviewed with the patient today their responsibilities to safeguard prescription medications, reviewed their responsibility to utilize medications only as prescribed by the physician. They are to seek and receive pain medications only from 1 physician group ( [facility]). They are to use 1 pharmacy and keep the clinic informed if they change pharmacies. Their responsibilities include making followup visits in a timely fashion and to avoid abrupt discontinuation of medication usage. Their responsibilities further include bringing their medications (bottles from the pharmacy with residual pills) to the visit for possible confirmation of pill counts and the patient understands it is their responsibility to submit to random drug screens to ensure both that the medications prescribed are present, and that no other controlled substances are present. All prescriptions provided today were generated electronically. PLAN: 1. We discussed treatment options with the patient today. The patient tells me that he felt Lyrica to be more beneficial than gabapentin. I explained to him that it is not generic though the cost is about the same currently. We will revisit rotating him to Lyrica at his next visit. Hopefully, the cost will have come down and the patient will be able to afford Lyrica since he found that much more beneficial in controlling his neuropathic pain than the gabapentin that he currently stays on gabapentin 300 mg 1 in the morning and 2 at bedtime. Scripts given today for #90 with one additional refill of that medication. 2. The patient did try to decrease his MS Contin, found that he was unable to tolerate the pain, especially in his arms. We will continue to refill his MS Contin 15 mg #90 for release today, 4-week and 8-week. This does place him at 45 morphine mEq, which is below the CDC guidelines. 4. The patient provided with a urine specimen for random drug screen. 5. The patient is seen in collaboration today with Dr. Manish Bal. He will return in 3 months. ��������������������������������������������� <ELECTRONICALLY SIGNED> ���������������������������������������� By: Marlyn Vernon ��������������������������������������������� 06/10/19 1420 [id number] Marlyn Vernon /nt
== END ==
LOC: PAIN 06:56
DX: G62.9 Polyneuropathy, unspecified (principal); G61.0 Guillain-Barre syndrome; F11.20 Opioid dependence, uncomplicated; G89.4 Chronic pain syndrome; Z79.899 Other long term (current) drug therapy

== ENCOUNTER → 2019-09-08 | Outpatient (CLI) | payer OTHER, BC ==
[~2019-09-08] VITALS: Ht 177.8 cm; Wt 74.6 kg
[2019-09-08 10:23] VITALS: BP 146/77
--- NOTE | 2019-09-08 10:31 | NUR ---
Pain Clinic Assessment: 1. History of Osteoarthritis: DENIES "FINGERS/THUMB"? History of Rheumatoid Arthritis: DENIES 2. Height: 5 ft. 10 in. 177.8 cm. Weight: 164.4 lb. oz. 74.571 kg. Patient's BMI: 23.6 3. Vital Signs: BP: 146/77 Pulse: 58 Resp: 14 Temp: 02 Sat: 100 ECG Mon: 4. Pain Intensity: 1 5. Fall Risk: Dizziness: N Needs help standing or walking: N Fallen in the last 3 months: N Fall risk comments: 6. Patient on Blood Thinner: LELE 7. History of Hypertension: Y 8. Opioid Therapy greater than 6 weeks: Y Opiate Contract Signed: 11/18/17 9. Risk Assessment Tool Provided: LOW RISK 10. Functional Assessment Tool: 11. Recreational Drug Use: Never Drug Type: Tobacco Use: Never Smoker Tobacco Type: Amount or Packs/day: How Many Years: Alcohol Use: No Frequency: Quant:
--- NOTE | 2019-09-09 09:25 | HPC ---
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 HISTORY OF PRESENT ILLNESS: This is a very pleasant 73-year-old gentleman who returns to the pain clinic today for refill of his medications that he uses to help treat his ongoing neuropathy in his hands, feet, legs and arms as a result of Guillain-Cresco. He reports a pain score of 1-10. He feels that his current regimen has been working quite well, though he would like to decrease his morphine intake and was wondering about altering his gabapentin with Lyrica as we had discussed in the past. He reports that cold weather makes his pain worse, but his medications are beneficial. He denies any problems with constipation or daytime sleepiness. He has been stable at this dose of morphine for quite some time. The current morphine mEq of 45 MME per day. ALLERGIES: No known drug allergies. CURRENT LIST OF MEDICATIONS: Morphine sulphate ER 15 mg t.i.d., Benadryl p.r.n., gabapentin 300 mg at night, Crestor 20 mg daily, omeprazole 20 mg daily, Eliquis 5 mg b.i.d., Zetia 10 mg at bedtime, Toprol-XL 25 mg daily, Flomax 0.4 mg at bedtime and MiraLax. PQRS: 1. He has a history of arthritic changes in his lumbar spine, hips and knees and hands. Denies any rheumatoid arthritis. 2. Height is 5 feet 10 inches, weight is 164, BMI is 23. 3. Vital signs 146/77, pulse is 58, respirations 14, oxygen sat is 100. 4. Pain score is 1. 5. Denies dizziness, does not need help walking or standing, has not fallen in the last 3 months. 6. The patient is on Eliquis as well as hypertension. 7. Opioid therapy is greater than 6 weeks; therefore, an opiate signed contract is on the chart. His risk assessment tool is low. Functional assessment is . 8. Recreational drug use, he denies. He is not a smoker and does not drink alcohol. According to the prescription monitoring system, the patient is filling [address] [address] PAIN MANAGEMENT CONSULTATION Name: SIMILISSETHGERIMEI L Room #: REG Robi Gil#: [id number] Admission: 09/08/19 Attend Phys: Marlyn Vernon Discharge: Date of : 45 Report #: [id number] appropriately for his medications in a timely fashion. There is a recent drug screen on the chart that is appropriate as well. PHYSICAL EXAMINATION: GENERAL: This is a well-developed, well-nourished 73-year-old gentleman who appears his stated age, placing his current pain score 1/10. He is alert and orientated. HEENT: Normocephalic, atraumatic. Extraocular eye muscles are intact. Mucous membranes are moist. Speech is fluent. EXTREMITIES: No clubbing, no cyanosis, no edema. MUSCULOSKELETAL: He has numbness and burning in his bilateral arms and bilateral legs. He rises from sitting to standing position without difficulty. He walks with a slightly antalgic gait. His lower extremity strength judged to be 5/5 in all major muscle groups. ASSESSMENT: 1. Peripheral neuropathy. 2. Ouxw-Ioyoznif-Ibxwo syndrome. 3. Opioid dependency. 4. Chronic opioid use under terms of written opioid agreement. 5. Chronic intractable pain. We reviewed the fact that opiate medications are being used to provide analgesia adequate to support activities of daily living, not attempting to achieve a specific pain score on the 0-10 Visual Analog Scale. The current opiate medications are providing sufficient analgesia to allow the patient to participate in activities of daily living. The patient is not exhibiting any aberrant behavior suggestive of drug diversion. The patient is not having any adverse reactions to medications. The patient is not suffering from daytime somnolence or mental acuity changes. The patient is managing opiate-induced constipation with appropriate frub-bmn-eunftmm agents and dietary considerations. The patient was counseled on concern for caution with operating a motor vehicle while using opiate medications. A physical exam was performed and the patient's functional status was evaluated. All patients with back pain were advised against the bed rest greater than 4 days and were advised to return to normal activities. Pain score assessment was noted and the treatment plan was reviewed with the patient. All current medications, both prescribed and OTC were reviewed and reconciled on the electronic medical record. Tobacco screening was accomplished and smoking cessation was advised when indicated. BMI was noted and diet/exercise modification was recommended for all patients following outside normal parameters. I reviewed with the patient today their responsibilities to safeguard prescription medications, reviewed their responsibility to utilize medications only as prescribed by the physician. They are to seek and receive pain [address] [address] PAIN MANAGEMENT CONSULTATION Name: MEI ROCK Room #: REG [facility] Manisha#: [id number] Admission: 09/08/19 Attend Phys: Marlyn Vernon Discharge: Date of : 45 Report #: [id number] medications only from 1 physician group ( [facility]). They are to use 1 pharmacy and keep the clinic informed if they change pharmacies. Their responsibilities include making followup visits in a timely fashion and to avoid abrupt discontinuation of medication usage. Their responsibilities further include bringing their medications (bottles from the pharmacy with residual pills) to the visit for possible confirmation of pill counts and the patient understands it is their responsibility to submit to random drug screens to ensure both that the medications prescribed are present, and that no other controlled substances are present. All prescriptions provided today were generated electronically. PLAN: 1. We discussed treatment options with the patient today. We had previously discussed with him rotating his gabapentin to Lyrica. He had had a successful trial with this medication in years past, though it was too expensive, now it is generic, he is wishing to try that medication again and hopeful if it is beneficial, he will be able to decrease his morphine use. We will start the patient at 75 mg Lyrica at bedtime. If this is beneficial, we will increase this medicine to 1 tablet in the afternoon and 1 tablet at bedtime. Scripts given for Lyrica 75 mg, #30 with 2 additional refills. 2. Scripts given for morphine sulfate 15 mg #90 for today 4 week an 8-week release. Again, this places the patient at 45 morphine mEq well under the CDC guidelines. 3. We will try to decrease his morphine if the Lyrica trial is successful, first decreasing to 2 tablets a day, taking at morning and nighttime and then hopefully decreasing further if we will adjust his Lyrica dose. We will do this via telephone or at his next appointment. The patient is seen in collaboration with Dr. Manish Bal who agreed with the care today and collaborated. <ELECTRONICALLY SIGNED> By: Marlyn Vernon 09/09/19 0925 [id number] Marlyn Vernon /nt
== END ==
LOC: PAIN 06:44
DX: G61.0 Guillain-Barre syndrome (principal); G62.9 Polyneuropathy, unspecified; F11.20 Opioid dependence, uncomplicated; G89.4 Chronic pain syndrome; Z79.899 Other long term (current) drug therapy; Z88.8 Allergy status to other drugs, medicaments and biological substances

== ENCOUNTER → 2019-12-08 | Outpatient (CLI) | payer OTHER, BC ==
[~2019-12-08] VITALS: Ht 177.8 cm; Wt 77.8 kg
[~2019-12-08] MED LIST changes: +NEURONTIN 300M300 M2 PO
[2019-12-08 09:58] VITALS: BP 151/83
--- NOTE | 2019-12-08 10:08 | NUR ---
Pain Clinic Assessment: 1. History of Osteoarthritis: DENIES "FINGERS/THUMB"? History of Rheumatoid Arthritis: Not Applicable 2. Height: 5 ft. 10 in. 177.8 cm. Weight: 171.6 lb. oz. 77.837 kg. Patient's BMI: 24.6 3. Vital Signs: BP: 151/83 Pulse: 58 Resp: 14 Temp: 02 Sat: 100 ECG Mon: 4. Pain Intensity: 1 5. Fall Risk: Dizziness: N Needs help standing or walking: N Fallen in the last 3 months: N Fall risk comments: 6. Patient on Blood Thinner: LELE 7. History of Hypertension: Y 8. Opioid Therapy greater than 6 weeks: Y Opiate Contract Signed: 11/18/17 9. Risk Assessment Tool Provided: LOW RISK-0 10. Functional Assessment Tool: 11. Recreational Drug Use: Never Drug Type: Tobacco Use: Never Smoker Tobacco Type: Amount or Packs/day: How Many Years: Alcohol Use: No Frequency: Quant:
--- NOTE | 2019-12-09 15:56 | HPC ---
[facility] [address] [address] PAIN MANAGEMENT CONSULTATION Name: MEI ROCK Room #: REG [facility] Manisha.#: [id number] Admission: 12/08/19 Attend Phys: Marlyn Vernon Discharge: Date of : 45 Report #: [id number] THIS REPORT FOR: cc: Manish Rebollar James L. 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 HISTORY OF PRESENT ILLNESS: This is a very pleasant 74-year-old gentleman who returns for refills of his morphine medication to help treat his ongoing neuropathy in his hands, feet, legs and arms. He is rating a pain score of 1/10 today when he does take his medications. He feels that the Lyrica was not beneficial for him, so he is requesting to go back to gabapentin. He had restarted some old medications that he had at home, taking 1-2 tablets a day and he finds that beneficial. He does report that his pain is exacerbated by cold weather and hot temperatures. Today, he feels like he is doing reasonably well with his current regimen of medications. He denies any problems with constipation or daytime sleepiness. ALLERGIES: No known drug allergies. CURRENT LIST OF MEDICATIONS: MS Contin 15 mg every 8 hours, Benadryl p.r.n., gabapentin 300 mg b.i.d., Crestor, omeprazole, Eliquis, Zetia, metoprolol, Flomax, and MiraLax. PQRS: 1. He has arthritic changes in his lumbar spine, hips and knees. Denies any rheumatoid arthritis. 2. Height is 5 feet 10 inches, weight is 171, BMI is 24. 3. Vital signs 151/83, pulse is 58, respirations 14, oxygen sat is 100. 4. Pain score is 110. 5. Denies dizziness, does not need help walking or standing, has not fallen in the last 3 months. 6. The patient is on Eliquis as well as medicines for hypertension. 7. Opiate therapy is greater than 6 weeks; therefore, an opioid signed contract is on the chart. Risk assessment is low. Functional assessment . 8. Recreational drug use, he denies. He is not a smoker and does not drink alcohol. [address] [address] PAIN MANAGEMENT CONSULTATION Name: PRANAVMEI Trae Room #: REG [facility]#: [id number] Admission: 12/08/19 Attend Phys: Marlyn Vernon Discharge: Date of : 45 Report #: [id number] According to the prescription monitoring system, the patient is filling appropriately for his medications. He is due to fill those later this week. His morphine mEq according to the CDC guidelines is 45. The patient keep his meds safeguarded at all times. PHYSICAL EXAMINATION: GENERAL: This is a well-developed, well-nourished 74-year-old gentleman who appears his stated age, placing his current pain score at 1/10. HEENT: Normocephalic, atraumatic. Extraocular eye muscles are intact. Mucous membranes are moist. EXTREMITIES: No clubbing, no edema, no cyanosis. MUSCULOSKELETAL: The patient has burning and numbness in his bilateral arms and legs. He does walk with a slightly antalgic gait. His lower extremity strength judged to be 5/5 in all major muscle groups. ASSESSMENT: 1. Peripheral neuropathy. 2. Post Guillain-Lowell syndrome. 3. Opioid dependency. 4. Chronic intractable pain. 5. Chronic opioid use under terms of written opioid agreement. We reviewed the fact that opiate medications are being used to provide analgesia adequate to support activities of daily living, not attempting to achieve a specific pain score on the 0-10 Visual Analog Scale. The current opiate medications are providing sufficient analgesia to allow the patient to participate in activities of daily living. The patient is not exhibiting any aberrant behavior suggestive of drug diversion. The patient is not having any adverse reactions to medications. The patient is not suffering from daytime somnolence or mental acuity changes. The patient is managing opiate-induced constipation with appropriate bfcp-chz-wglbrzm agents and dietary considerations. The patient was counseled on concern for caution with operating a motor vehicle while using opiate medications. PLAN: 1. We discussed treatment options with the patient today. The patient is doing quite well on his current regimen of morphine sulfate 15 mg 3 times a day. We will renew this medication for today, 4-week and 8-week release. 2. The patient did not find the Lyrica as helpful as the gabapentin. He has returned to that medication, taking 1 at bedtime every night and on days that his pain is increased, he does take it in the morning as well. We will continue the gabapentin 300 mg, #60 with 2 additional refills. These will be sent electronically as well. [address] [address] PAIN MANAGEMENT CONSULTATION Name: MEI ROCK Room #: REG ABIOLA Louise#: [id number] Admission: 12/08/19 Attend Phys: Marlyn Vernon Discharge: Date of : 45 Report #: [id number] 3. The patient is seen in collaboration with Dr. Manish Bal who collaborated care today and saw the patient as well. The patient will return in 3 months. <ELECTRONICALLY SIGNED> By: Marlyn Vernon 12/09/19 1556 [id number] Marlyn Vernon /saturnino
== END ==
LOC: PAIN 06:36
DX: G61.0 Guillain-Barre syndrome (principal); G62.9 Polyneuropathy, unspecified; F11.20 Opioid dependence, uncomplicated; G89.29 Other chronic pain; Z79.899 Other long term (current) drug therapy

== ENCOUNTER → 2019-12-24 | Outpatient (CLI) | payer OTHER, BC | LOC: SJCVC 13:03 | DX: R00.1 Bradycardia, unspecified (principal); I25.10 Atherosclerotic heart disease of native coronary artery without angina pectoris; I48.0 Paroxysmal atrial fibrillation; I10 Essential (primary) hypertension; E78.5 Hyperlipidemia, unspecified; G61.0 Guillain-Barre syndrome; K21.9 Gastro-esophageal reflux disease without esophagitis; Z79.899 Other long term (current) drug therapy ==

== ENCOUNTER → 2020-02-16 | Outpatient (CLI) | payer OTHER, BC ==
--- NOTE | 2020-02-16 13:08 | HPC ---
[facility] [address] [address] PAIN MANAGEMENT CONSULTATION Name: PRANAVMEI Trae Room #: REG ABIOLA Gil#: [id number] Admission: 02/16/20 Attend Phys: Marlyn Vernon Discharge: Date of : 45 Report #: [id number] THIS REPORT FOR: cc: Manish Rebollar James L. DO Hocker,Marlyn OROZCO ~ CC: Manish Bal DO DATE OF SERVICE: 02/16/2020 This is a tele med appointment on 02/16/2020 due to the coronavirus and the patients history of cardiac issues and Guillain-Bryan from 8:15-8:35. This is a telephone due to not having audiovisual, so the telephone tele med appointment. CHIEF COMPLAINT: Neuropathic pain secondary to Guillain-Bryan. HISTORY OF PRESENT ILLNESS: This is a pleasant 74-year-old gentleman who speaking to me via telephone for his appointment today for treatment for his ongoing neuropathy that he experiences in his hands and his feet. He has had a history of Guillain-Bryan and continues to have neuropathic issues. The patient tells me that he has been feeling quite well lately, he has been staying home through this COVID virus, only going to the grocery store occasionally. He said that he seems to be feeling well during this time, but he is very nervous about going anywhere. He has not even his family, only speaking to them on the phone, watching congregational online. He reports he is nervous about the COVID virus due to his current heart problems and a course is weakened immune system due to his Guillain-Bryan; therefore, we are doing a tele conference with him today. The patient does report that his pain is 0-1 today, mostly in the bottom of his feet. He has not experienced any arm discomfort today. He feels that the morphine sulfate is very beneficial in controlling his pain as well as his gabapentin. He denies any problems with constipation or daytime sleepiness as a result of his medications. The patient reports that he is feeling better since his upper respiratory that he was experienced in December. He wonders slightly if he had COVID at that time, he said his whole body hurt, but though he did not run a fever. He had a sore throat and upper respiratory infection with cough, but he was treated with antibiotics and he has now resolved all those symptoms. He does report that he is not needing his medications today, though he will need them in a couple of weeks. He also states he does not need his gabapentin refilled today since occasionally when he has a better pain day, he does take less of his gabapentin. ALLERGIES: No known drug allergies. [address] [address] PAIN MANAGEMENT CONSULTATION Name: MEI ROCK Room #: REG ABIOLA Gil#: [id number] Admission: 02/16/20 Attend Phys: Marlyn Vernon Discharge: Date of : 45 Report #: [id number] CURRENT LIST OF MEDICATIONS: MS Contin 15 mg every 8 hours, Benadryl p.r.n., gabapentin 300 mg b.i.d., Crestor, omeprazole, Eliquis, Zetia, metoprolol, Flomax, and MiraLax. PQRS: 1. He has arthritic changes in his lumbar spine, hips and knees. He denies any rheumatoid arthritis. 2. Height and weight and vital signs are deferred due to this tele med phone conference. 3. Pain score is 0-1/10. 4. The patient denies any dizziness. He tells me he has not fallen in the last 3 months. 5. The patient remains on Eliquis as well as medicines for hypertension. 6. Opioid therapy is greater than 6 weeks; therefore, an opioid signed contract is remaining on his chart. His risk assessment tool is low. Functional assessment . 7. Recreational drug use, the patient denies any use. He is not a smoker and does not drink alcohol. According to the prescription monitoring system, the patient filled his last prescription on 02/11/2020 per his report as well. He is not needing his medications for several weeks, the patient's morphine mEq is 45 MME per day according to the CDC guidelines. PHYSICAL ASSESSMENT: GENERAL: This was a review of systems due to a tele med visit. The patient is alert, answering all of my questions appropriately today in complete sentences. He reports his pain score from 0-1. HEENT: The patient tells me he does not have any problems with his vision or hearing. MUSCULOSKELETAL: The patient tells me he has burning in his feet today only and not in his arms as he does at sometimes. Walks with his normal gait which is slightly atalgic. ASSESSMENT: 1. Peripheral neuropathy. 2. Post Guillain-Bryan syndrome. 3. Opioid dependency. 4. Chronic intractable pain. 5. Chronic opioid use under terms of written opioid agreement. We reviewed the fact that opiate medications are being used to provide analgesia adequate to support activities of daily living, not attempting to achieve a specific pain score on the 0-10 Visual Analog Scale. The current opiate medications are providing sufficient analgesia to allow the patient to participate in activities of daily living. The patient is not exhibiting any [facility] [address] [place] [address] PAIN MANAGEMENT CONSULTATION Name: MEI ROCK Room #: [facility]#: [id number] Admission: 02/16/20 Attend Phys: Marlyn PAM Saulo Discharge: Date of : 45 Report #: [id number] aberrant behavior suggestive of drug diversion. The patient is not having any adverse reactions to medications. The patient is not suffering from daytime somnolence or mental acuity changes. The patient is managing opiate-induced constipation with appropriate qtjj-dgg-tagixcg agents and dietary considerations. The patient was counseled on concern for caution with operating a motor vehicle while using opiate medications. PLAN: 1. We discussed treatment options over the phone today for this tele med visit that was approximately 20 minutes long. The patient reports he is doing quite well, staying at home, stating safe due to COVID. He does usually stays home, so has not been much of an issue, though he is slightly depressed due to not being able to see his family those he is speaking with them over the phone. 2. We will refill his morphine sulfate 15 mg t.i.d., #90 for today and 4 weeks supply. These will be sent electronically by Dr. Manish Bal. 3. The patient is not in need of gabapentin today. He has a refill left. The patient will call when he is needing refill if it is prior to his next appointment. 4. I explained to the patient that he will need to come in 2 months. Hopefully, at that time there will be no issues with coming to physical appointment. At that time we will return to his 3 months of medication.The patient verbalizes understanding. 5. The patient telemed appointment is completed in collaboration with Dr. Manish Bal. <ELECTRONICALLY SIGNED> By: Marlyn Vernon 02/16/20 1308 0901 0923 Marlyn Vernon /nt
== END ==
LOC: PAIN 06:50 → TELEPC 06:50
DX: G61.0 Guillain-Barre syndrome (principal); G62.89 Other specified polyneuropathies; F11.20 Opioid dependence, uncomplicated; G89.29 Other chronic pain; Z79.899 Other long term (current) drug therapy

== ENCOUNTER → 2020-03-01 | Outpatient (CLI) | payer OTHER, BC | LOC: SJCVC 11:01 → SJCVCIMAG 11:01 | DX: R94.31 Abnormal electrocardiogram [ECG] [EKG] (principal); I34.0 Nonrheumatic mitral (valve) insufficiency; I25.10 Atherosclerotic heart disease of native coronary artery without angina pectoris; I48.0 Paroxysmal atrial fibrillation; E78.5 Hyperlipidemia, unspecified; G61.0 Guillain-Barre syndrome; I10 Essential (primary) hypertension; K21.9 Gastro-esophageal reflux disease without esophagitis; I25.2 Old myocardial infarction; Z90.49 Acquired absence of other specified parts of digestive tract; Z79.899 Other long term (current) drug therapy; Z87.891 Personal history of nicotine dependence ==

== ENCOUNTER → 2020-03-07 | Outpatient (CLI) | payer OTHER, BC | LOC: SJCVC 14:37 | DX: I48.0 Paroxysmal atrial fibrillation (principal); I25.10 Atherosclerotic heart disease of native coronary artery without angina pectoris; E78.5 Hyperlipidemia, unspecified; I10 Essential (primary) hypertension; K21.9 Gastro-esophageal reflux disease without esophagitis; Z82.49 Family history of ischemic heart disease and other diseases of the circulatory system; Z79.899 Other long term (current) drug therapy; Z87.891 Personal history of nicotine dependence ==

== ENCOUNTER → 2020-03-18 | Outpatient (CLI) | payer OTHER, BC ==
[2020-03-18 09:50] LABS: HEMOGLOBIN 13.8 gm/dL (14.0-18.0); MCH 31.5 pg (26.0-34.0); MCHC 33.7 g/dL (28.0-37.0); MCV 93.4 fL (80.0-100.0); RBC 4.39 mil/uL (4.50-6.00); RDW 13.2 % (10.5-14.5); WBC 6.2 thou/uL (4.0-11.0)
[2020-03-18 10:05] LABS: ALBUMIN 4.1 g/dL (3.4-5.0); CALCIUM 8.9 mg/dL (8.5-10.1); CREATININE 1.1 mg/dL (0.7-1.3); POTASSIUM 4.3 mmol/L (3.5-5.1); TOTAL BILIRUBIN 0.6 mg/dL (<0.1-1.0)
== END ==
LOC: CAT 09:12
PROVIDERS: Internal Medicine Cardiovascular Disease
DX: Z01.818 Encounter for other preprocedural examination (principal); I25.10 Atherosclerotic heart disease of native coronary artery without angina pectoris; J84.10 Pulmonary fibrosis, unspecified; R91.1 Solitary pulmonary nodule; N28.1 Cyst of kidney, acquired; K76.89 Other specified diseases of liver; I48.91 Unspecified atrial fibrillation

== ENCOUNTER 2020-03-23 06:40 | Observation (INO) | payer OTHER, BC ==
[2020-03-23] VITALS (12 sets, daily range): BP systolic 124–156; BP diastolic 75–88
[~2020-03-23] VITALS: Ht 177.8 cm; Wt 74.8 kg
--- NOTE | ~2020-03-23 | P ---
[facility] [place] [address] PROCEDURE REPORT Name: MEI ROCK Room #: 213-P [facility]#: [id number] Admission: 03/23/20 Attend Phys: Gil Cote MD Discharge: Date of : 45 Report #: [id number] THIS REPORT FOR: cc: Manish Rebollar James L. DO Couchonnal, Luis F. MD ~ CC: Manish Cote DATE OF SERVICE: 03/23/2020 PREOPERATIVE DIAGNOSIS: Atrial fibrillation. POSTOPERATIVE DIAGNOSIS: Atrial fibrillation. HISTORY: The patient is a 74-year-old male with recurrent paroxysmal AFib, here for ablation. PROCEDURES PERFORMED: 1. Atrial fibrillation ablation, CPT code 20972. 2. 3D mapping, CPT code 18432. 3. Intracardiac echo, CPT code 20103. 4. Focal ablation, CPT code 30217. ANESTHESIA: The patient underwent general anesthesia with no anesthesia related complications. DESCRIPTION OF PROCEDURE: The patient underwent informed consent. We discussed the details of the procedure including the risks, which include but not limited to bleeding, infection, vascular damage, cardiac perforation, stroke and SC. He understood these risks and is willing to proceed. The patient was brought to the EP laboratory in a fasting and nonsedated state and prepped and draped in a sterile fashion. I obtained access to the right femoral vein x 3, placing an 8, 9 and 7-Guyanese short sheath using the modified Seldinger technique. Next under fluoroscopy, a decapolar catheter was placed in the coronary sinus with ease. ICE catheter was placed in the right atrium and a 3D geometry of the right atrium was created using CartoSound. Of note, on his CT scan the patient had evidence of an additional pulmonary vein that was arising from the roof of the left atrium. This vein was closest to the right pulmonary veins. Next, the patient was systemically heparinized and a transseptal was performing a SL1 sheath and a [place] needle. I could not cross with the SL1 sheath into the left atrium and tried dilating with the cryo sheath, but this would not cross into the left atrium either. Therefore, went back up with the SL1, which [facility] [address] [place] [place] [address] PROCEDURE REPORT Name: MEI ROCK Room #: 213-P [facility]..#: [id number] Admission: 03/23/20 Attend Phys: Gil Cote MD Discharge: Date of : 45 Report #: [id number] now crossed the left atrium and I used a balloon to dilate the interatrial septum. After performing this balloon dilatation, I easily was able to cross with the cryo sheath into the left atrium. Next, I started by isolating the left pulmonary veins. The left superior pulmonary vein underwent a 4-minute, followed by 3-minute freeze. This vein isolated at 72 seconds during the first freeze. I turned my attention to the left inferior pulmonary vein. I performed two 4-minute freezes. The vein isolated within 110 seconds of the first freeze. I then attempted to engage the right superior pulmonary vein. I initially interrogated this roof vein. I decided to get out of this vein and first treated the right-sided veins. Next with the decapolar catheter placed in the subclavian position, phrenic nerve pacing was performed. The right superior pulmonary vein had an unusual takeoff and was somewhat challenging to isolate. I performed an initial freeze of 90 seconds, but came off as the temperatures were not very good. I then performed a second freeze of 4 minutes' duration, which resulted in vein isolation in 35 seconds, but there was reconnection. I performed another 4-minute freeze, which resulted in isolation of the vein within 64 seconds, but again there was reconnection and I performed a fourth freeze of 4 minutes' duration, which resulted in isolation in about 20 seconds and these temps were very good at -52 degrees. I did have to clock the sheath quite hard to get this vein to isolate. I then turned my attention to the right inferior pulmonary vein. I performed two 4-minute freezes. The vein did isolate within 45 seconds of the first freeze. I then went back and placed my Achieve catheter into this roof vein. I performed two 3-minute freezes and post-ablation, this vein was also isolated. I then quickly performed a repeat voltage map using my Biosense Forrester Lasso catheter. This clearly demonstrated that we had isolation of the pulmonary veins and of this roof vein, but there was still a narrow channel of activity near the left pulmonary veins, which could become potentially proarrhythmic in the future. Therefore, I went back in with the cryoablation balloon and I performed three roof freezes anchored from the left superior pulmonary vein, each of these freezes was 3 minutes in duration and esophageal temperatures were monitored closely throughout the entire case. There was no esophageal temperatures issues. I performed a final voltage map and this now clearly demonstrated that we had isolation of all the pulmonary veins including this roof vein and had also created a roofline in posterior wall isolation. Using intracardiac ultrasound, I verified there was no pericardial effusion. The patient then received 100 of protamine and once ACT was within acceptable range, catheters and sheaths were pulled and hemostasis was obtained. The patient awoke neurologically and hemodynamically intact. No complications and no significant bleeding. CONCLUSIONS: 1. Successful AFib ablation with isolation of the left and right pulmonary veins. [facility] [address] [place] [address] PROCEDURE REPORT Name: MEI ROCK Room #: 213-P [facility]#: [id number] Admission: 03/23/20 Attend Phys: Gil Cote MD Discharge: Date of : 45 Report #: [id number] 2. Successful isolation of a pulmonary vein arising from the left atrial roof. 3. Successful posterior wall isolation and roof line creation. By: [id number] Gil Cote MD /nt
[2020-03-23 07:28] LABS: ABSOLUTE NEUTROPHILS 3.9 thou/uL (1.4-8.2); BASOPHILS 0.6 % (0.0-2.0); EOSINOPHILS 1.5 % (0.0-3.0); HEMATOCRIT 41.8 % (42.0-52.0); HEMOGLOBIN 14.2 gm/dL (14.0-18.0); LYMPHOCYTES 26.9 % (24.0-44.0); MCH 31.6 pg (26.0-34.0); MCV 92.8 fL (80.0-100.0); MONOCYTES 7.2 % (1.0-8.0); PLATELET COUNT 215 thou/uL (150-400); POLYS 63.8 % (36.0-66.0); RDW 13.1 % (10.5-14.5); WBC 6.2 thou/uL (4.0-11.0)
[2020-03-23 07:31] LABS: CALCIUM 8.8 mg/dL (8.5-10.1); CREATININE 1.1 mg/dL (0.7-1.3); POTASSIUM 3.6 mmol/L (3.5-5.1)
[2020-03-23 07:39] LABS: ALBUMIN 4.3 g/dL (3.4-5.0); TOTAL BILIRUBIN 0.8 mg/dL (<0.1-1.0); TOTAL PROTEIN 7.4 g/dL (6.4-8.2)
[2020-03-23] MEDS ORDERED: COZAAR 25 MG TA25 M1 PO (07:39)
[2020-03-23] MEDS ORDERED: AMIODARONE HCL400 MG PO (07:39)
[2020-03-23 07:42] LABS: INR 1.1; PROTIME 10.8 Seconds (9.3-11.4)
--- NOTE | 2020-03-23 20:16 | NUR ---
ASSUMMED PT CARE AT APPROXIMATELY 1325. PT A&O X4. ASSESSMENT CHARTED. FALL PRECAUTIONS IN PLACE. PT DENIES HAVING CHEST PAIN. PT DENIES HAVING SOB. PT STATED HE HAD A HEADACHE. PT RECEIVED ANALGESICS. PT STATED ANALGESICS HELPED RELIEVE HEADACHE. PT RECEIVED ONETIME VALIUM FOR GUILLIAN BARRE. PT STATED MUSCLE TIGHTNESS IN LEGS DECREASED. VITAL SIGNS STABLE. POST-PROCEDURE VITAL SIGNS COMPLETE. PT BED REST COMPLETE. PT STANDS STEADY. PT STATED HE DID NOT WANT THE WHITLOCK CATH REMOVED AT THIS TIME. CHANGED PT'S R GROIN SITE DRESSING DUE TO DRESSING HAVING DRY DRAINAGE THROUGHOUT THE SHIFT. UNDERNEATH DRESSING PT'S R GROIN C/D/I. NO HEMATOMA. HELD GROIN SITE. NEW DRESSING C/D/I. NO HEMATOMA. ADMISSION COMPLETE. PT SITTING IN BED COMFORTABLE. PT DENIES HAVING FURTHER CONCERNS. PT STATED HE DID NOT WANT TO HAVE MIRALAX AT THIS TIME.
[2020-03-24 00:45] VITALS: BP 140/88
[2020-03-24 04:45] VITALS: BP 133/80
--- NOTE | 2020-03-24 05:30 | NUR ---
PT IS ALERT AND ORIENTED. NO SIGN OF DISTRESS NOTED IN PT. PT IS ALERT AND ORIENTED. GERA ANY PAIN. GROIN SITE IS INTACT, CLEAN DRY AND INTACT. ASSESSMENT COMPLETED AND DOCUMENTED. SCHEDULED MEDS ADMINISTERED TO PT. WHITLOCK DISCONTINUED. PT VOIDS AFTER REMOVAL. PT VERBALIZES A HEADACHE. MED ADMINISTERED TO PT. CONTINUE TO MONITOR PT. DENIES ANY FURTHER NEEDS AT THIS TIME.
[2020-03-24 07:50] VITALS: BP 134/71
--- NOTE | 2020-03-24 07:56 | NUR ---
ASSUMED CARE OF PT AT SHIFT CHANGE, THROAT SLIGHTLY SORE/CONGESTION, COUGH, SLIGHT HEADACHE LAST FEW DAYS HE STATES, TYLENOL NOTED GIVEN AT 0522. NORMALLY TAKES MORPHINE AT HOME FOR ALEXEYANTLISSETH CHEYANNE, HASN'T HAD FOR COUPLE OF DAYS. SEE SEPARATE INTERVENTIONS FOR ASSESSMENTS. WILL CONTINUE TO MONITOR; POSSIBLE D/C
[2020-03-24] MEDS ORDERED: TOPROL XL25 MG PO (08:22)
[2020-03-24 10:21] VITALS: BP 134/71
[2020-03-24 10:50] VITALS: BP 134/68
[2020-03-24 11:12] VITALS: BP 134/71
== END 2020-03-24 15:30 | disposition home or self-care (01) ==
LOC: CATH 06:40 → 2N 13:37 → OR 15:01 → 2N 03-24 15:30
PROVIDERS: ADMIT Internal Medicine Cardiovascular Disease
DX: I48.91 Unspecified atrial fibrillation (principal); I10 Essential (primary) hypertension
CPT/HCPCS: 62110; 62900; 65020; 65040; 65130; 70005

== ENCOUNTER → 2020-05-10 | Outpatient (CLI) | payer OTHER, BC ==
[~2020-05-10] VITALS: Ht 177.8 cm; Wt 76.5 kg
[~2020-05-10] MED LIST changes: +AMIODARONE HCL400 MG PO; +COZAAR 25 MG TA25 M1 PO
--- NOTE | ~2020-05-10 | HPC ---
[facility] [place] [address] PAIN MANAGEMENT CONSULTATION Name: MEI ROCK Trae Room #: REG ABIOLA Louise#: [id number] Admission: 05/10/20 Attend Phys: Manish Bal DO Discharge: Date of : 45 Report #: [id number] THIS REPORT FOR: cc: Manish Rebollar James L. DO Johnson, James E. 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 He indicates that the opioid medication provided for pain control in the form of morphine 15 mg 3 times a day worked well for pain control. The patient and I have had discussions throughout the treatment course that ultimately these medications will be necessary to reduce as opioid medications are not an appropriate long-term treatment for neuropathic symptoms. He has trialed multiple medications in the past to address neuropathic symptoms, but was unable to tolerate their side effects. He recently was on Lyrica, which apparently did not provide much benefit and was causing some sedation. They have subsequently discontinued medication, had no change in overall pain, but did see resolution of his side effects. He returns today in followup visit requesting refill of his MS Contin and gabapentin. He is understanding that ultimately opioid medications will be discontinued for long-term use and they will have to make adjustments. At this time, he wishes to continue therapy. ALLERGIES: No known drug allergies. CURRENT MEDICATIONS: MS Contin 15 mg 3 times a day, Benadryl p.r.n., gabapentin 300 mg b.i.d., Crestor, omeprazole, Eliquis, Zetia, metoprolol, Flomax and MiraLax. SOCIAL HISTORY: The patient denies tobacco, alcohol, IV or illicit drug use. He is retired, unaccompanied today. IMAGING: No new imaging available. PQRS: The patient has known arthritic changes of the lumbar spine, bilateral hips and knees and no rheumatoid arthritis. He is placing current pain score at 1/10. He is not a fall risk, has not had a fall in last 3 months. He is on blood thinners in the form of Eliquis and continues to [place] [address] PAIN MANAGEMENT CONSULTATION Name: MEI ROCK Room #: REG CLI [facility]#: [id number] Admission: 05/10/20 Attend Phys: Manish Bal DO Discharge: Date of : 45 Report #: [id number] treated for hypertension. He is on chronic opioids and has a low opiate addiction potential based on our assessment tool. Pain impact score 7/70 indicating mild interference of daily activities secondary to pain. PHYSICAL EXAMINATION: VITAL SIGNS: Blood pressure 154/88, pulse 72, respiratory rate 16 and unlabored. The patient is 100% on room air. Height 5 feet 10 inches tall, weight 168.6 pounds, BMI calculated 24.2. GENERAL: Well-developed, well-nourished, well-hydrated 74-year-old male appearing stated age, pain is rated today 1/10. HEENT: Normocephalic, atraumatic. Pupils equal, round, reactive. Speech is fluent. EXTREMITIES: Show no clubbing, no cyanosis and no edema. MUSCULOSKELETAL: Lower extremity strength appears symmetrical 5/5, intact to light touch from L1 through S2 dermatomes. Seated straight leg raising negative. Supine straight leg raising negative. Patience's test is negative. Gait appears slightly antalgic appears favoring right lower extremity over left. ASSESSMENT: 1. Peripheral neuropathy. 2. Post Guillain-Marietta syndrome. 3. Opioid dependency. 4. Chronic opioid use under opioid agreement. 5. Chronic intractable pain. PLAN: 1. The patient returns today in followup visit requesting refill on his medications for pain control. He states the morphine 15 mg 3 times a day along with gabapentin 300 mg twice a day provides good and prolonged benefit. He is denying side effects of sleepiness, disorientation, confusion and mental slowing with use of therapy. He does have some minor constipation he treats with cdax-srg-nmhpzil medications and diet changes. Overall, the patient states he is doing very well, wishes to continue the therapy. 2. We reviewed the fact that opiate medications are being used to provide analgesia adequate to support activities of daily living, not attempting to achieve a specific pain score on the 0-10 Visual Analog Scale. The current opiate medications are providing sufficient analgesia to allow the patient to participate in activities of daily living. The patient is not exhibiting any aberrant behavior suggestive of drug diversion. The patient is not having any adverse reactions to medications. The patient is not suffering from daytime somnolence or mental acuity changes. The patient is managing opiate-induced constipation with appropriate dyel-kcy-cywysva agents and dietary considerations. The patient was counseled on concern for caution with operating a motor vehicle while using opiate medications. A physical exam was performed and the patient's functional status was evaluated. [address] [address] PAIN MANAGEMENT CONSULTATION Name: MEI ROCK Room #: REG ABIOLA Gil#: [id number] Admission: 05/10/20 Attend Phys: Manish Bal DO Discharge: Date of : 45 Report #: [id number] All patients with back pain were advised against the bed rest greater than 4 days and were advised to return to normal activities. Pain score assessment was noted and the treatment plan was reviewed with the patient. All current medications, both prescribed and OTC were reviewed and reconciled on the electronic medical record. Tobacco screening was accomplished and smoking cessation was advised when indicated. BMI was noted and diet/exercise modification was recommended for all patients following outside normal parameters. I reviewed with the patient today their responsibilities to safeguard prescription medications, reviewed their responsibility to utilize medications only as prescribed by the physician. They are to seek and receive pain medications only from 1 physician group ( [facility]). They are to use 1 pharmacy and keep the clinic informed if they change pharmacies. Their responsibilities include making followup visits in a timely fashion and to avoid abrupt discontinuation of medication usage. Their responsibilities further include bringing their medications (bottles from the pharmacy with residual pills) to the visit for possible confirmation of pill counts and the patient understands it is their responsibility to submit to random drug screens to ensure both that the medications prescribed are present, and that no other controlled substances are present. All prescriptions provided today were generated electronically. 3. The patient and I had a very long discussion today about opioid medications. There is new information coming out from the Center for Disease Control and [employer] in regards to opioid medication for long-term treatment. There is no definitive study that indicates that long-term treatment is successful with opioid medications. There is a strong possibility his medications ultimately will be discontinued. At this point, the patient wishes to continue therapy, but understands that in the very near future these may need to be reduced and ultimately discontinued. The patient is agreeable, but understands that at this point, we will continue the therapy. 4. The patient was provided prescription of MS Contin 15 mg dose 1 tab p.o. t.i.d., #90 tablets releasing today and 4 weeks from today, 2 months' worth of medication. 5. The patient was provided a refill prescription of gabapentin 300 mg dose 1 tab p.o. b.i.d., #60 with 2 refills. 6. We will see the patient back in followup visit for continuation of medication therapy and discuss other options for treatment. We will keep you apprised of his response to therapy. By: [id number] Manish Bal DO /nt
[2020-05-10 10:49] VITALS: BP 154/88
--- NOTE | 2020-05-10 10:59 | NUR ---
Pain Clinic Assessment: 1. History of Osteoarthritis: DENIES "FINGERS/THUMB"? History of Rheumatoid Arthritis: Not Applicable 2. Height: 5 ft. 10 in. 177.8 cm. Weight: 168.6 lb. oz. 76.476 kg. Patient's BMI: 24.2 3. Vital Signs: BP: 154/88 Pulse: 72 Resp: 16 Temp: 02 Sat: 100 ECG Mon: 4. Pain Intensity: 1 5. Fall Risk: Dizziness: Y Needs help standing or walking: N Fallen in the last 3 months: N Fall risk comments: 6. Patient on Blood Thinner: LELE 7. History of Hypertension: Y 8. Opioid Therapy greater than 6 weeks: Y Opiate Contract Signed: 11/18/17 9. Risk Assessment Tool Provided: LOW RISK-0 10. Functional Assessment Tool: 11. Recreational Drug Use: Never Drug Type: Tobacco Use: Former Smoker Tobacco Type: Amount or Packs/day: How Many Years: Alcohol Use: No Frequency: Quant:
== END ==
LOC: PAIN 06:53
PROVIDERS: ATTEND Anesthesiology Pain Medicine
DX: G61.0 Guillain-Barre syndrome (principal); I73.9 Peripheral vascular disease, unspecified; F11.20 Opioid dependence, uncomplicated; G89.29 Other chronic pain; Z79.899 Other long term (current) drug therapy

== ENCOUNTER → 2020-06-29 | Outpatient (CLI) | payer OTHER, BC | LOC: SJCVC 16:00 | PROVIDERS: ATTEND Internal Medicine Cardiovascular Disease | DX: I48.0 Paroxysmal atrial fibrillation (principal); I10 Essential (primary) hypertension; I25.10 Atherosclerotic heart disease of native coronary artery without angina pectoris; Z79.899 Other long term (current) drug therapy; Z87.891 Personal history of nicotine dependence ==

== ENCOUNTER → 2020-07-12 | Outpatient (CLI) | payer OTHER, BC ==
--- NOTE | ~2020-07-12 | P ---
[facility] [place] [address] PROCEDURE REPORT Name: MEI ROCK Trae Room #: REG Robi Gil#: [id number] Admission: 07/12/20 Attend Phys: Gil Cote MD Discharge: Date of : 45 Report #: [id number] THIS REPORT FOR: cc: Manish Rebollar,Gil Marion MD ~ CC: Manish Cote PROCEDURE: Implantable loop recorder. PREOPERATIVE DIAGNOSIS: Palpitations. POSTOPERATIVE DIAGNOSIS: Palpitations. DESCRIPTION OF PROCEDURE: The patient underwent informed consent. He was prepped and draped in a sterile fashion. I injected lidocaine at the incision site. Incision was made. Device was injected and tested and found to be functioning normally. A single stitch was performed and surgical glue was placed to outer skin layer. There were no procedure related complications. Implanted device was a [employer]tronic LINQ, serial #[id number]. CONCLUSIONS: Successful implantation of implantable loop recorder. By: [id number] Gil Cote MD /nt
[2020-07-12 12:12] VITALS: BP 140/73
--- NOTE | 2020-07-14 13:30 | P ---
[facility] [place] [address] PROCEDURE REPORT Name: MEI ROCK Room #: [id number] Admission: 07/12/20 Attend Phys: Gil Cote MD Discharge: Date of : 45 Report #: [id number] THIS REPORT FOR: cc: Manish Rebollar James L. DO Couchonnal, Luis F. MD ~ CC: Manish Cote DATE OF SERVICE: 07/12/2020 PROCEDURE: Implantable loop recorder insertion. PREOPERATIVE DIAGNOSIS: Atrial fibrillation. POSTOPERATIVE DIAGNOSIS: Atrial fibrillation. DESCRIPTION OF PROCEDURE: The patient underwent informed consent. He was prepped and draped in a standard fashion. I injected lidocaine at the incision site. Incision was made and device was injected under the skin. Single layer of suture was placed and surgical glue was placed on the incision. There were no procedure related complications. Implant device was a AC [employer]e SA Reveal model #LNQ11, serial #[id number]. CONCLUSIONS: Successful implantation of a loop recorder. <ELECTRONICALLY SIGNED> By: Gil Cote MD 07/14/20 1330 [id number] Gil Cote MD /nt
== END | disposition home or self-care (01) ==
LOC: CATH 10:51
PROVIDERS: ATTEND Internal Medicine Cardiovascular Disease
DX: I48.91 Unspecified atrial fibrillation (principal); Z98.890 Other specified postprocedural states; Z79.899 Other long term (current) drug therapy; Z79.01 Long term (current) use of anticoagulants

== ENCOUNTER → 2020-08-02 | Outpatient (CLI) | payer OTHER, BC ==
[~2020-08-02] VITALS: Ht 177.8 cm; Wt 77.6 kg
[2020-08-02 09:54] VITALS: BP 147/84
--- NOTE | 2020-08-02 10:15 | NUR ---
Pain Clinic Assessment: 1. History of Osteoarthritis: DENIES History of Rheumatoid Arthritis: Not Applicable 2. Height: 5 ft. 10 in. 177.8 cm. Weight: 171.0 lb. oz. 77.565 kg. Patient's BMI: 24.5 3. Vital Signs: BP: 147/84 Pulse: 60 Resp: 14 Temp: 02 Sat: 100 ECG Mon: 4. Pain Intensity: 0 5. Fall Risk: Dizziness: N Needs help standing or walking: N Fallen in the last 3 months: N Fall risk comments: 6. Patient on Blood Thinner: ELIQUIS 7. History of Hypertension: Y 8. Opioid Therapy greater than 6 weeks: Y Opiate Contract Signed: 11/18/17 9. Risk Assessment Tool Provided: LOW RISK-0 10. Functional Assessment Tool: 11. Recreational Drug Use: Never Drug Type: Tobacco Use: Former Smoker Tobacco Type: Amount or Packs/day: How Many Years: Alcohol Use: No Frequency: Quant:
--- NOTE | 2020-08-03 15:34 | HPC ---
[facility] [address] [address] PAIN MANAGEMENT CONSULTATION Name: MEI ROCK Room #: REG YUMI Louise#: [id number] Admission: 08/02/20 Attend Phys: Marlyn Vernon Discharge: Date of : 45 Report #: [id number] THIS REPORT FOR: cc: Manish Rebollar James L. DO Hocker, Amanda CNS ~ CC: Manish Bal DO DATE OF SERVICE: 08/02/2020 CHIEF COMPLAINT: Neuropathic pain secondary to Guillain-Dora. HISTORY OF PRESENT ILLNESS: This is a very pleasant 74-year-old gentleman who returns to the pain clinic today for refill of his medications. He is reporting a pain score of 0/10 today. He states that his pain is worse later in the day, especially at nighttime in both his legs, arms, feet and hands. He has increased his gabapentin to 2 tablets a day and find that is most beneficial as well as his morphine 3 times a day. He does experience some constipation issues and takes MiraLax on a regular basis. He denies any daytime somnolence. This cold weather does increase his pain, so he has had some adjustments the last few days. The patient does report that he had cardiac ablation in March for his atrial fibrillation. He was on amiodarone for a while. He recently had stopped that, but continues on his Eliquis blood thinner. He states that he is feeling much better since he had the ablation done with more energy. ALLERGIES: No known drug allergies. CURRENT LIST OF MEDICATIONS: Toprol-XL 25 mg daily, morphine sulfate 15 mg t.i.d., gabapentin 300 mg b.i.d., Crestor, omeprazole, Eliquis, Zetia, Flomax and MiraLax. PQRS: 1. He has known arthritic changes in his lumbar spine, hips, knees and denies any rheumatoid arthritis. 2. Height is 5 feet 10 inches, weight is 171, BMI is 24. 3. Vital signs; blood pressure 147/84, pulse is 60, respirations 14, oxygen sat is 100. 4. Pain score is 0/10. 5. Fall risk. Denies dizziness, does not need help walking or standing, has not fallen in the last 3 months. 6. The patient is on Eliquis as well as medicines for hypertension. 7. His opioid therapy is greater than 6 weeks; therefore, an opioid signed contract is on the chart. Risk assessment is low. Functional [place] [address] PAIN MANAGEMENT CONSULTATION Name: MEI ROCK Room #: REG [facility]#: [id number] Admission: 08/02/20 Attend Phys: Marlyn Vernon Discharge: Date of : 45 Report #: [id number] 8. Recreational drug use, he denies. He is a former smoker and does not drink alcohol. According to the prescription monitoring system, the patient is filling appropriately for his medications in a timely fashion. His morphine milliequivalent is 45 MME. We will check a random drug screen on the patient today. PHYSICAL EXAMINATION: GENERAL: This is a well-developed, well-nourished, well-hydrated 74-year-old gentleman who appears his stated age, placing his current pain score at 0/10. HEENT: Normocephalic, atraumatic. Pupils equal, round, and reactive. He is wearing a mask and glasses. EXTREMITIES: No clubbing, no cyanosis, no edema. MUSCULOSKELETAL: Seated straight leg raising is negative. Gait appears slightly antalgic. Lower extremity strength is symmetrical at 5/5 and is intact to light touch from L1-S2. He has tenderness in his lumbosacral region. ASSESSMENT: 1. Peripheral neuropathy. 2. Post Guillain-Dora syndrome. 3. Opioid dependency. 4. Opioid use under written opioid agreement. We reviewed the fact that opiate medications are being used to provide analgesia adequate to support activities of daily living, not attempting to achieve a specific pain score on the 0-10 Visual Analog Scale. The current opiate medications are providing sufficient analgesia to allow the patient to participate in activities of daily living. The patient is not exhibiting any aberrant behavior suggestive of drug diversion. The patient is not having any adverse reactions to medications. The patient is not suffering from daytime somnolence or mental acuity changes. The patient is managing opiate-induced constipation with appropriate czwk-wqp-cemtfbm agents and dietary considerations. The patient was counseled on concern for caution with operating a motor vehicle while using opiate medications. A physical exam was performed and the patient's functional status was evaluated. All patients with back pain were advised against the bed rest greater than 4 days and were advised to return to normal activities. Pain score assessment was noted and the treatment plan was reviewed with the patient. All current medications, both prescribed and OTC were reviewed and reconciled on the electronic medical record. Tobacco screening was accomplished and smoking cessation was advised when indicated. BMI was noted and diet/exercise modification was recommended for all patients following outside normal parameters. [address] [address] PAIN MANAGEMENT CONSULTATION Name: MEI ROCK Room #: REG ABIOLA Gil#: [id number] Admission: 08/02/20 Attend Phys: Marlyn Vernon Discharge: Date of : 45 Report #: [id number] I reviewed with the patient today their responsibilities to safeguard prescription medications, reviewed their responsibility to utilize medications only as prescribed by the physician. They are to seek and receive pain medications only from 1 physician group ( [facility]). They are to use 1 pharmacy and keep the clinic informed if they change pharmacies. Their responsibilities include making followup visits in a timely fashion and to avoid abrupt discontinuation of medication usage. Their responsibilities further include bringing their medications (bottles from the pharmacy with residual pills) to the visit for possible confirmation of pill counts and the patient understands it is their responsibility to submit to random drug screens to ensure both that the medications prescribed are present, and that no other controlled substances are present. All prescriptions provided today were generated electronically. PLAN: 1. We discussed treatment options with the patient today. The patient feels his medications afford him good relief and enable him to do the activities that he enjoys around the house with minimal pain throughout the day. Pain does increase later in the day, but feels that the gabapentin and morphine do manage everything appropriately. We will have Dr. Manish Bal send electronically his morphine sulfate 15 mg t.i.d., #90, for today, 4-week and 8-week release as well as I will send gabapentin 300 mg, #60 with 5 additional refills to his pharmacy. 2. We did collect a random drug screen on the patient with his last dose taken this morning. 3. The patient will follow up in 3 months. The patient is seen today in collaboration with Dr. Manish Bal. <ELECTRONICALLY SIGNED> By: Marlyn Vernon 08/03/20 1534 [id number] Marlyn Vernon /nt
== END ==
LOC: PAIN 06:43
PROVIDERS: ATTEND Clinical Nurse Specialist Adult Health
DX: G61.0 Guillain-Barre syndrome (principal); G62.9 Polyneuropathy, unspecified; F11.20 Opioid dependence, uncomplicated; Z79.899 Other long term (current) drug therapy

== ENCOUNTER → 2020-08-31 | Outpatient (CLI) | payer OTHER, BC | LOC: SJCVC 11:50 | PROVIDERS: ATTEND Internal Medicine | DX: I25.10 Atherosclerotic heart disease of native coronary artery without angina pectoris (principal); I48.0 Paroxysmal atrial fibrillation; I10 Essential (primary) hypertension; E78.5 Hyperlipidemia, unspecified; G61.0 Guillain-Barre syndrome; Z95.5 Presence of coronary angioplasty implant and graft; Z79.899 Other long term (current) drug therapy; Z87.891 Personal history of nicotine dependence ==

== ENCOUNTER → 2020-11-01 | Outpatient (CLI) | payer OTHER, BC ==
[~2020-11-01] VITALS: Ht 177.8 cm; Wt 78.7 kg
[2020-11-01 09:41] VITALS: BP 156/92
--- NOTE | 2020-11-01 09:51 | NUR ---
Pain Clinic Assessment: 1. History of Osteoarthritis: DENIES History of Rheumatoid Arthritis: Not Applicable 2. Height: 5 ft. 10 in. 177.8 cm. Weight: 173.6 lb. oz. 78.744 kg. Patient's BMI: 24.9 3. Vital Signs: BP: 156/92 Pulse: 65 Resp: 14 Temp: 02 Sat: 100 ECG Mon: 4. Pain Intensity: 1 5. Fall Risk: Dizziness: N Needs help standing or walking: N Fallen in the last 3 months: N Fall risk comments: 6. Patient on Blood Thinner: ELIQUIS 7. History of Hypertension: Y 8. Opioid Therapy greater than 6 weeks: Y Opiate Contract Signed: 11/18/17 9. Risk Assessment Tool Provided: LOW RISK-0 10. Functional Assessment Tool: 11. Recreational Drug Use: Never Drug Type: Tobacco Use: Former Smoker Tobacco Type: Amount or Packs/day: How Many Years: Alcohol Use: No Frequency: Quant:
--- NOTE | 2020-11-01 14:26 | HPC ---
[facility] [place] [address] PAIN MANAGEMENT CONSULTATION Name: MEI ROCK Trae Room #: REG [facility] Louise#: [id number] Admission: 11/01/20 Attend Phys: Marlyn Vernon Discharge: Date of : 45 Report #: [id number] THIS REPORT FOR: cc: Manish Rebollar James L. 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 HISTORY OF PRESENT ILLNESS: This is a very pleasant 74-year-old gentleman who returns to the pain clinic today for a refill of his morphine. He finds this very beneficial in helping alleviate his pain in his low back and legs. He occasionally has a burning, aching sensation that is worse with cold weather changes or heat. The patient is reporting a pain score of 1/10 today, though he reports last night his legs were hurting quite significantly and did require 2 gabapentin, which was helpful as well as Tylenol on top of his morphine tablets. The patient denies any problems with constipation as a result of his medication. He is requesting refills of his morphine today. He believes he has plenty of gabapentin since he takes 1-2 tablets at bedtime, depending on how he is feeling. The patient did discuss the COVID vaccine and virus. He has been staying home, being safe, but does wear a mask at all times. 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 That is believed to have caused his Guillain-Humarock after a flu shot. ALLERGIES: Flu vaccine. CURRENT LIST OF MEDICATIONS: Gabapentin 300 mg at bedtime, morphine sulfate 15 mg t.i.d., metoprolol, Benadryl, Crestor, omeprazole, Eliquis, Zetia, Flomax, and MiraLax. PQRS: 1. He has known arthritic changes in his spine, hips and knees. Denies any rheumatoid arthritis. 2. Height is 5 feet 10 inches, weight is 173. BMI is 24. 3. Vital signs 156/92, pulse is 65, respirations 14, oxygen sat is 100, pain score is 1/10. Fall risk, denies dizziness, does not need assistance with ambulation, has not fallen in the last 3 months. The patient is on Eliquis and also on medications for hypertension. His opioid therapy is greater than 6 weeks; therefore, an opioid signed contract is on the chart. Risk assessment is low. Functional assessment . 4. Recreational drug use, he denies. He is a former smoker and does [place] [address] PAIN MANAGEMENT CONSULTATION Name: MEI ROCK Room #: REG ABIOLA Gil#: [id number] Admission: 11/01/20 Attend Phys: Marlyn Vernon Discharge: Date of : 45 Report #: [id number] According to the prescription monitoring system, the patient is filling appropriately in a timely fashion. He is due to fill his medications today. His morphine mEq is 45 MME and there is a recent drug screen that is appropriate on his chart. PHYSICAL EXAMINATION: GENERAL: This is alert and orientated, well-developed, well-nourished, well-hydrated 74-year-old gentleman who appears his stated age, placing his current pain score at 1/10. HEENT: Normocephalic, atraumatic. Pupils equal, round and reactive to light. He is wearing glasses and a mask. EXTREMITIES: No clubbing, no cyanosis, no edema. MUSCULOSKELETAL: Lower extremity strength is symmetrical at 5/5 with intact to light touch. Seated straight leg raising is negative and he does have tenderness in his lumbosacral region today. Upper extremity strength is equal at 5/5. He does use armrest for assistance with rising. He has a mildly antalgic gait. ASSESSMENT: 1. Peripheral neuropathy. 2. Nsds-Ulhnrvmy-Rbfah syndrome. 3. Opioid dependency. 4. Chronic intractable pain. We reviewed the fact that opiate medications are being used to provide analgesia adequate to support activities of daily living, not attempting to achieve a specific pain score on the 0-10 Visual Analog Scale. The current opiate medications are providing sufficient analgesia to allow the patient to participate in activities of daily living. The patient is not exhibiting any aberrant behavior suggestive of drug diversion. The patient is not having any adverse reactions to medications. The patient is not suffering from daytime somnolence or mental acuity changes. The patient is managing opiate-induced constipation with appropriate wvpo-wph-ahfykrv agents and dietary considerations. The patient was counseled on concern for caution with operating a motor vehicle while using opiate medications. A physical exam was performed and the patient's functional status was evaluated. All patients with back pain were advised against the bed rest greater than 4 days and were advised to return to normal activities. Pain score assessment was noted and the treatment plan was reviewed with the patient. All current medications, both prescribed and OTC were reviewed and reconciled on the electronic medical record. Tobacco screening was accomplished and smoking cessation was advised when indicated. BMI was noted and diet/exercise modification was recommended for all patients following outside normal parameters. [address] [address] PAIN MANAGEMENT CONSULTATION Name: MEI ROCK Room #: REG [facility]#: [id number] Admission: 11/01/20 Attend Phys: Marlyn PAM Saulo Discharge: Date of : 45 Report #: [id number] I reviewed with the patient today their responsibilities to safeguard prescription medications, reviewed their responsibility to utilize medications only as prescribed by the physician. They are to seek and receive pain medications only from 1 physician group ( [facility]). They are to use 1 pharmacy and keep the clinic informed if they change pharmacies. Their responsibilities include making followup visits in a timely fashion and to avoid abrupt discontinuation of medication usage. Their responsibilities further include bringing their medications (bottles from the pharmacy with residual pills) to the visit for possible confirmation of pill counts and the patient understands it is their responsibility to submit to random drug screens to ensure both that the medications prescribed are present, and that no other controlled substances are present. All prescriptions provided today were generated electronically. PLAN: 1. We discussed treatment options with the patient today. He believes that the MS Contin is very beneficial in controlling his pain, utilizing 3 doses a day. We will have Dr. Manish Bal send this electronically for #90, for today, 4-week and 8-week release. 2. The patient takes gabapentin on an as needed basis, though always takes one at bedtime. If his pain in his legs is increased throughout the day, he takes 2 tablets at bedtime. Due to this reasoning, he is not needing refills today, but we may phone in if he needs this prior to his next appointment. 3. The patient is seen today in collaboration with Dr. Bal. We will follow up in 3 months. <ELECTRONICALLY SIGNED> By: Marlyn Vernon 11/01/20 1426 1147 1213 Marlyn Vernon /nt
== END ==
LOC: PAIN 06:49
PROVIDERS: ATTEND Clinical Nurse Specialist Adult Health
DX: G61.0 Guillain-Barre syndrome (principal); G62.9 Polyneuropathy, unspecified; F11.20 Opioid dependence, uncomplicated; G89.29 Other chronic pain

== ENCOUNTER → 2021-01-10 | Outpatient (CLI) | payer OTHER, BC | LOC: SJCVC 12:40 | PROVIDERS: ATTEND Internal Medicine Cardiovascular Disease | DX: R94.31 Abnormal electrocardiogram [ECG] [EKG] (principal); I25.10 Atherosclerotic heart disease of native coronary artery without angina pectoris; I10 Essential (primary) hypertension; K21.9 Gastro-esophageal reflux disease without esophagitis; I48.0 Paroxysmal atrial fibrillation; E78.5 Hyperlipidemia, unspecified; I25.2 Old myocardial infarction; Z90.49 Acquired absence of other specified parts of digestive tract; Z98.890 Other specified postprocedural states; Z88.8 Allergy status to other drugs, medicaments and biological substances; Z79.899 Other long term (current) drug therapy; Z87.891 Personal history of nicotine dependence; Z82.49 Family history of ischemic heart disease and other diseases of the circulatory system ==

== ENCOUNTER → 2021-02-01 | Outpatient (CLI) | payer OTHER, BC ==
[~2021-02-01] VITALS: Ht 177.8 cm; Wt 78.9 kg
[~2021-02-01] MED LIST changes: +NEURONTIN300 MG PO; +PRILOSEC OTC20 MG PO; +SYNTHROID25 MC1 PO
[2021-02-01 10:02] VITALS: BP 158/91
--- NOTE | 2021-02-01 10:08 | NUR ---
Pain Clinic Assessment: 1. History of Osteoarthritis: DENIES History of Rheumatoid Arthritis: Not Applicable 2. Height: 5 ft. 10 in. 177.8 cm. Weight: 174.0 lb. oz. 78.926 kg. Patient's BMI: 25.0 3. Vital Signs: BP: 158/91 Pulse: 66 Resp: 16 Temp: 02 Sat: 97 ECG Mon: 4. Pain Intensity: 1 5. Fall Risk: Dizziness: N Needs help standing or walking: N Fallen in the last 3 months: N Fall risk comments: 6. Patient on Blood Thinner: ELIQUIS 7. History of Hypertension: Y 8. Opioid Therapy greater than 6 weeks: Y Opiate Contract Signed: 11/18/17 9. Risk Assessment Tool Provided: LOW RISK-0 10. Functional Assessment Tool: 11. Recreational Drug Use: Never Drug Type: Tobacco Use: Former Smoker Tobacco Type: Amount or Packs/day: How Many Years: Alcohol Use: No Frequency: Quant:
--- NOTE | 2021-02-02 08:23 | HPC ---
[facility] [address] [place] [address] PAIN MANAGEMENT CONSULTATION Name: MEI ROCK Trae Room #: REG ABIOLA Gil#: [id number] Admission: 02/01/21 Attend Phys: Marlyn Vernon Discharge: Date of : 45 Report #: [id number] THIS REPORT FOR: cc: Manish Rebollar James L. 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 HISTORY OF PRESENT ILLNESS: This is a pleasant 75-year-old gentleman who returns to the pain clinic today for renewal of his opioid medications. Today, the patient is reporting a pain score of 1/10, reporting his medications are very beneficial in controlling his pain. He reports at times not needing all of his gabapentin dose per day, but then when he does flares, he finds that medication very beneficial in helping his burning, numbness sensation that he feels. He does report that heat as well as his medication have been beneficial in helping his leg pain as well as his bilateral arm pain, his ongoing low back pain as well. He does have some issues of constipation and does take MiraLax on a daily basis to help with the side effect. He denies daytime somnolence. Again, the patient has not had the COVID vaccine due to his Guillain-Toledo. He is staying safe, away from people, though his has had the injection. The patient does report that he thinks he had COVID last fall before they were testing for antibodies. He reports being negative x 2 testing for actual COVID when he had outpatient procedures. ALLERGIES: FLU VACCINE. CURRENT LIST OF MEDICATIONS: Synthroid 25 mcg, morphine sulfate 15 mg t.i.d., gabapentin 300 mg b.i.d., metoprolol, Benadryl, Crestor, omeprazole, Eliquis, Zetia, and MiraLax. PQRS: 1. He has known arthritic changes in his hips, spine and knees. Denies any rheumatoid arthritis. 2. Height is 5 feet 10 inches, weight is 174, BMI is 25. 3. Vital signs 158/91, pulse is 66, respirations 16, oxygen sat is 97%. Pain score is 1/10. 4. Denies dizziness, does not need help walking or standing, has not fallen in the last 3 months. 5. The patient is on Eliquis as well as medications for hypertension. 6. Opioid therapy is greater than 6 weeks; therefore, an opioid signed contract is on the chart. Risk assessment is low. Functional assessment . 7. Recreational drug use, he denies. He is a former smoker and does not drink alcohol. [address] [address] PAIN MANAGEMENT CONSULTATION Name: MEI ROCK Room #: REG CL Louise#: [id number] Admission: 02/01/21 Attend Phys: Marlyn Vernon Discharge: Date of : 45 Report #: [id number] According to the prescription monitoring system, he is filling appropriately. He is due to fill his medications early next week. His morphine mEq is 45 MME per day. There is a recent drug screen on the chart that is appropriate for his medications as well. PHYSICAL EXAMINATION: GENERAL: This is alert and orientated, very pleasant 75-year-old who appears his stated age. He is well-hydrated, well-nourished. HEENT: Normocephalic, atraumatic. Extraocular eye muscles are intact. Mucous membranes are moist. He is wearing a mask. Speech is fluent. EXTREMITIES: No clubbing, no cyanosis, no edema. MUSCULOSKELETAL: Lower extremity strength appears symmetrical at 5/5 and intact to light touch from L1-S2. Seated straight leg raising is negative. Patience's test is negative. Gait is slightly antalgic, favoring his right lower extremity over his left. ASSESSMENT: 1. Peripheral neuropathy. 2. Post Guillain-Toledo syndrome. 3. Opioid dependency. 4. Chronic opioid use under written opioid agreement. PLAN: 1. We discussed treatment options with the patient today. The patient has tried in the past to decrease his morphine medications but was unsuccessful. So, we continue him on morphine sulfate 15 mg 3 times a day. This helps substantially decrease his pain. We will continue this medication today since he has no side effects of sleepiness or disorientation with this medication, just only minor constipation that he treats with uqwr-dvu-vlyfzby medications. Dr. Manish Bal will send electronically his morphine sulfate 15 mg, #90 to release today, 4-week and 8-week releases. 2. I will send his gabapentin 300 mg, #60 with 5 refills. The patient finds this beneficial in helping with a burning sensation he experiences especially in his lower extremities. 3. We did discuss alternatives for opioid medications. There is an injection, Tanezumab, that will be coming on the market at some point, that may be a possibility for his pain and arthritic issues, though he has had a history of Guillain-Toledo after a flu vaccine. We will discuss it at a future date with Dr. Bal. 4. We did discuss with him having lab work for the COVID antibodies. He was sick last fall. He has been tested negative for COVID, but during that illness, he was not tested. He will speak with Dr. Rebollar, his primary care doctor at his next appointment to have antibodies drawn. Time spent with the patient in consultation, reviewing clinical notes and [facility] [address] [place] [address] PAIN MANAGEMENT CONSULTATION Name: MEI ROCK Room #: [facility].#: [id number] Admission: 02/01/21 Attend Phys: Marlyn Vernon Discharge: Date of : 45 Report #: [id number] physician reports, physical exam in correlation of findings and medical documentation determined treatment 13 minutes. Time spent in preparation for appointment, review of prescription monitoring system report, reviewing previous records and proposed treatment options and reviewing current medications 5 minutes. Time spent with preparation and sending electronic prescription with collaborating physician, Dr. Manish Bal and discussion of new medications, documentation of visit and plan of care 8 minutes. Total time spent 26 minutes. <ELECTRONICALLY SIGNED> By: Marlyn Vernon 02/02/21 0823 1038 Marlyn Vernon /nt
== END ==
LOC: PAIN 06:52
PROVIDERS: ATTEND Clinical Nurse Specialist Adult Health
DX: G61.0 Guillain-Barre syndrome (principal); G62.9 Polyneuropathy, unspecified; F11.20 Opioid dependence, uncomplicated; Z88.8 Allergy status to other drugs, medicaments and biological substances; Z79.899 Other long term (current) drug therapy

== ENCOUNTER → 2021-03-01 | Outpatient (CLI) | payer OTHER, BC | LOC: SJCVC 10:08 | PROVIDERS: ATTEND Internal Medicine | DX: I25.10 Atherosclerotic heart disease of native coronary artery without angina pectoris (principal); I48.0 Paroxysmal atrial fibrillation; I10 Essential (primary) hypertension; E78.5 Hyperlipidemia, unspecified; G61.0 Guillain-Barre syndrome; K21.9 Gastro-esophageal reflux disease without esophagitis; I25.2 Old myocardial infarction; Z95.5 Presence of coronary angioplasty implant and graft; Z90.49 Acquired absence of other specified parts of digestive tract; Z88.8 Allergy status to other drugs, medicaments and biological substances; Z98.890 Other specified postprocedural states; Z79.899 Other long term (current) drug therapy; Z87.891 Personal history of nicotine dependence; Z82.49 Family history of ischemic heart disease and other diseases of the circulatory system ==

== ENCOUNTER → 2021-05-02 | Outpatient (CLI) | payer OTHER, BC ==
[~2021-05-02] VITALS: Ht 177.8 cm; Wt 78.8 kg
[2021-05-02 09:43] VITALS: BP 150/89
--- NOTE | 2021-05-02 09:48 | NUR ---
Pain Clinic Assessment: 1. History of Osteoarthritis: DENIES History of Rheumatoid Arthritis: Not Applicable 2. Height: 5 ft. 10 in. 177.8 cm. Weight: 173.8 lb. oz. 78.835 kg. Patient's BMI: 24.9 3. Vital Signs: BP: 150/89 Pulse: 60 Resp: 14 Temp: 02 Sat: 100 ECG Mon: 4. Pain Intensity: 1-2 5. Fall Risk: Dizziness: N Needs help standing or walking: N Fallen in the last 3 months: N Fall risk comments: 6. Patient on Blood Thinner: LELE 7. History of Hypertension: Y 8. Opioid Therapy greater than 6 weeks: Y Opiate Contract Signed: 11/18/17 9. Risk Assessment Tool Provided: LOW RISK-0 10. Functional Assessment Tool: 11. Recreational Drug Use: Never Drug Type: Tobacco Use: Former Smoker Tobacco Type: Amount or Packs/day: How Many Years: Alcohol Use: No Frequency: Quant:
--- NOTE | 2021-05-03 07:50 | HPC ---
[facility] [address] [address] PAIN MANAGEMENT CONSULTATION Name: MEI ROCK Room #: REG [facility] Louise#: [id number] Admission: 05/02/21 Attend Phys: Marlyn Vernon Discharge: Date of : 45 Report #: [id number] THIS REPORT FOR: cc: Manish Rebollar James L. DO Hocker, Amanda CNS ~ DOC #: [id number] cc: Manish Rebollar DO, James E. Johnson, DO Amanda Hocker, PHOEBE DATE OF SERVICE: 05/02/2021 CHIEF COMPLAINT: Neuropathic pain secondary to Guillain-[place]. HISTORY OF PRESENT ILLNESS: A very pleasant 75-year-old gentleman who returns to the pain clinic today for renewal of his medications. Today, the patient is reporting a pain score of 1-2, stating his most problematic areas are in his arms and legs. He describes this as an aching, burning sensation that is worse with cold weather or significant heat. Overall, he believes the medication of morphine sulfate 3 times a day is very beneficial in controlling his pain as well as utilizing rest. He denies any significant constipation as long as he takes MiraLax on a daily basis and he does take gabapentin on a regular basis as well. The patient is happy to report today he was able to have the COVID vaccine in February. His primary care doctor was reluctant to have him take this injection due to his previous reaction from the flu shot that caused Guillain-[place]. His inspector scales did research on the Moderna vaccine and believes that he would not have any issues. The patient is happy to report he was fatigued for a couple days, otherwise no side effects from the vaccine. He is anxious to see some of his family this weekend for the holiday weekend since he has been fully vaccinated. ALLERGIES: FLU VACCINE. CURRENT LIST OF MEDICATIONS: Morphine sulfate 15 mg t.i.d., gabapentin, Synthroid, Toprol, Crestor, omeprazole, Eliquis, Zetia, Flomax, and MiraLax. PQRS: He denies any osteoarthritis or rheumatoid arthritis. 2. Height is 5 feet 10 inches, weight is 173. BMI is 24. 3. Vital signs 150/89, pulse is 60, respirations 14, oxygen sat is 100. Pain score is 1-2. 4. Fall risk, he denies dizziness, does not need help walking or standing, has not fallen in the last 3 months. 5. The patient is on Eliquis as well as medications for hypertension. 6. Opioid therapy is greater than six weeks; therefore, an opioid signed [address] [address] PAIN MANAGEMENT CONSULTATION Name: MEI ROCK Room #: REG [facility] Gil#: [id number] Admission: 05/02/21 Attend Phys: Marlyn Vernon Discharge: Date of : 45 Report #: [id number] contract is on the chart. 7. Risk assessment: Low. 8. Functional assessment: . 9. Recreational drug use, he denies. He is a former smoker, does not drink alcohol. According to the prescription monitoring system, the patient is filling appropriately in a timely fashion. His morphine mEq according to the CDC guidelines is 45 MME. There is a recent drug screen on the chart that is appropriate as well for his medications. We reviewed the fact that opiate medications are being used to provide analgesia adequate to support activities of daily living, not attempting to achieve a specific pain score on the 0-10 Visual Analog Scale. The current opiate medications are providing sufficient analgesia to allow the patient to participate in activities of daily living. The patient is not exhibiting any aberrant behavior suggestive of drug diversion. The patient is not having any adverse reactions to medications. The patient is not suffering from daytime somnolence or mental acuity changes. The patient is managing opiate-induced constipation with appropriate uldk-ugw-wjpeqvw agents and dietary considerations. The patient was counseled on concern for caution with operating a motor vehicle while using opiate medications. A physical exam was performed and the patient's functional status was evaluated. All patients with back pain were advised against the bed rest greater than 4 days and were advised to return to normal activities. Pain score assessment was noted and the treatment plan was reviewed with the patient. All current medications, both prescribed and OTC were reviewed and reconciled on the electronic medical record. Tobacco screening was accomplished and smoking cessation was advised when indicated. BMI was noted and diet/exercise modification was recommended for all patients following outside normal parameters. I reviewed with the patient today their responsibilities to safeguard prescription medications, reviewed their responsibility to utilize medications only as prescribed by the physician. They are to seek and receive pain medications only from 1 physician group ( [facility]). They are to use 1 pharmacy and keep the clinic informed if they change pharmacies. Their responsibilities include making followup visits in a timely fashion and to avoid abrupt discontinuation of medication usage. Their responsibilities further include bringing their medications (bottles from the pharmacy with residual pills) to the visit for possible confirmation of pill counts and the patient understands it is their responsibility to submit to random drug screens to ensure both that the medications prescribed are present, and that no other controlled substances are present. All prescriptions provided today were generated electronically. [address] [address] PAIN MANAGEMENT CONSULTATION Name: MEI ROCK Room #: [facility]#: [id number] Admission: 05/02/21 Attend Phys: Marlyn Vernon Discharge: Date of : 45 Report #: [id number] IMPRESSION: 1. Peripheral neuropathy. 2. Post-guillain Guillain-[place] syndrome. 3. Opioid dependency. 4. Chronic opioid use under written agreement. PLAN: 1. We discussed treatment options with the patient today. We will continue him on his morphine sulfate 15 mg 3 times a day, #90. This will be sent electronically by Dr. Manish Bal for today, 4-week and 8-week release. This affords the patient very good pain control with very minimal side effects. 2. The patient does not need gabapentin refills today. He does take this sparingly and has plenty of medications at home. 3. We briefly discussed Tanezumab injections. We had discussed this at his last appointment, but unfortunately, it was not approved through the FDA. Therefore, it may be available for him in the future, but up this moment, we are unable to offer this as an alternative to his morphine. 4. The patient will follow up in 3 months or as needed. Time spent with the patient in consultation, reviewing clinical notes and physician reports, physical examination with correlation of findings and medical documentation to determine treatment options, 12 minutes. Time spent in preparation for appointment, reviewing prescription monitoring reports, reviewing previous records and proposed treatment options and reviewing current medications, 5 minutes. Time spent preparing and sending electronic prescriptions with collaborating physician, Dr. Manish Bal and documentation of visit and plan of care, 5 minutes. Total time spent 22 minutes. PHOEBE Goff/TRISH <ELECTRONICALLY SIGNED> By: Marlyn Vernon 05/03/21 0750 [id number] Marlyn Vernon /nt
== END ==
LOC: PAIN 06:51
PROVIDERS: ATTEND Clinical Nurse Specialist Adult Health
DX: G61.0 Guillain-Barre syndrome (principal); G62.9 Polyneuropathy, unspecified; Z79.899 Other long term (current) drug therapy; Z79.891 Long term (current) use of opiate analgesic; Z88.7 Allergy status to serum and vaccine

== ENCOUNTER → 2021-07-26 | Outpatient (CLI) | payer OTHER, BC ==
[~2021-07-26] VITALS: Ht 177.8 cm; Wt 76.7 kg
--- NOTE | ~2021-07-26 | HPC ---
[facility] [address] [place] [address] PAIN MANAGEMENT CONSULTATION Name: MEI ROCK Room #: REG [facility] Louise#: [id number] Admission: 07/26/21 Attend Phys: Marlyn Vernon Discharge: Date of : 45 Report #: [id number] THIS REPORT FOR: cc: Manish Rebollar James L. DO Hocker, Amanda CNS ~ cc: Manish Rebollar DO, James E. 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 HISTORY OF PRESENT ILLNESS: This is a very pleasant 75-year-old gentleman who returns to the pain clinic for ongoing medication management. Today, he is reporting his pain a 1-2, mostly located in his legs. 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 He finds the medication of morphine sulfate beneficial in controlling his pain and allowing him to lead a reasonably comfortable life. We have tried to wean him in the past, but it had been unsuccessful. His pain significantly increases with lower morphine doses. Today, he reports he has mostly good days. Occasionally, his legs are bothersome at night, taking a Tylenol an hour or two after bedtime and that seems to allow him to sleep along with his morphine and gabapentin that he takes at bedtime. The patient reports that he is going to consider having the COVID vaccine booster when it becomes available for him. He will discuss this with his doctors. He was reluctant to get the injection due to his Guillain-[place], but he did have the Moderna vaccine and had no side effects. He reports that he has continued to be very anxious and wears masks out and about since he has many family members that have not been vaccinated. He reports he will discuss it with his body trimmer at his next appointment where he has a nuclear stress test. ALLERGIES: FLU VACCINE. MEDICATIONS: Morphine sulfate 15 mg 3 times a day, gabapentin, Synthroid, Toprol, Crestor, omeprazole, Eliquis, Zetia, Flomax, and MiraLax. PATIENT'S PQRS: 1. He denies any osteo or rheumatoid arthritis. 2. Height is 5 feet 10 inches, weight is 169. BMI is 24. 3. Vital Signs: 161/92, pulse is 51, respirations 14, oxygen sat is 99%. 4. Pain score is 1-2. 5. Denies dizziness, does not need assistance with ambulation, has not fallen in the last 3 months. 6. The patient remains on Eliquis as well as taking [place] [address] PAIN MANAGEMENT CONSULTATION Name: MEI ROCK Room #: REG [facility] Gil#: [id number] Admission: 07/26/21 Attend Phys: Marlyn Vernon Discharge: Date of : 45 Report #: [id number] 7. Opioid therapy is greater than 6 weeks; therefore, an opioid signed contract is on the chart. 8. Risk assessment is low. Functional assessment . 9. Recreational drug use, he denies. He is a former smoker and does not drink alcohol. According to the prescription monitoring system, the patient is due to fill his medications this week. He does fill these appropriately and his morphine mEq is 45 MME; therefore, he is seen every 3 months in the pain clinic. There is a urine drug screen on his chart that is appropriate for his medications. PHYSICAL EXAMINATION: GENERAL: This is a well-developed, well-nourished, well-hydrated 75-year-old gentleman who appears his stated age, placing his current pain score today at 1-2. HEENT: Normocephalic, atraumatic. Extraocular eye muscles are intact. He is wearing a mask. MUSCULOSKELETAL: He has tenderness in his hands and feet bilaterally with paresthesias and excessive burning in his feet bilaterally. Again, no other changes noted in his skin in his hands. He has a slightly antalgic gait favoring his right over his left. Lower extremity strength is symmetrical at 5/5. ASSESSMENT: 1. Peripheral neuropathy. 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 Opioid dependency. 4. Chronic opioid use, under written opioid agreements. 5. History of atrial fibrillation, on anticoagulation therapy. We reviewed the fact that opiate medications are being used to provide analgesia adequate to support activities of daily living, not attempting to achieve a specific pain score on the 0-10 Visual Analog Scale. The current opiate medications are providing sufficient analgesia to allow the patient to participate in activities of daily living. The patient is not exhibiting any aberrant behavior suggestive of drug diversion. The patient is not having any adverse reactions to medications. The patient is not suffering from daytime somnolence or mental acuity changes. The patient is managing opiate-induced constipation with appropriate niiw-pho-ewkutxz agents and dietary considerations. The patient was counseled on concern for caution with operating a motor vehicle while using opiate medications. PLAN: 1. We discussed treatment options with the patient today. The patient does find his medications very beneficial in helping alleviate a significant portion of his pain. He has been discussing that his legs are more bothersome at night. [facility] [address] [place] [address] PAIN MANAGEMENT CONSULTATION Name: MEI ROCK Room #: [facility]#: [id number] Admission: 07/26/21 Attend Phys: Marlyn Vernon Discharge: Date of : 45 Report #: [id number] I encouraged him to try gabapentin 300 mg at dinnertime and then his second dose at bedtime to see if this is beneficial in helping relieve some of his burning sensation he is experiencing while sleeping. At times, the patient only takes 1 gabapentin a day and it was only at that time. I did discuss that he may have some somnolence as a result of changing his medication, but this may be relieved after several days of use as he becomes tolerant to the medication. 2. If that is not beneficial, he may continue as he has been taking one Tylenol at 1-2 hours after bedtime. 3. We will send scripts electronically for his gabapentin 300 mg #60 [address] Manish Bal will send electronically his morphine sulfate 15 mg tablets, #90 for today, 4-week, 8-week release. 4. The patient will return in 3 months or as needed. Time spent with the patient in consultation, reviewing clinical notes and physician reports, physical examination and correlation of findings and medical documentation in need to determine treatment options 12 minutes. Time spent preparing for appointment, reviewing prescription monitoring reports, reviewing previous records and treatment options, reviewing current medications 5 minutes. Time spent preparing and sending electronic prescriptions with collaborating physician, Dr. Manish Bal and documentation of visit and plan of treatment 5 minutes. Total time spent 22 minutes. By: [id number] Marlyn max
[2021-07-26 10:02] VITALS: BP 161/92
--- NOTE | 2021-07-26 10:05 | NUR ---
Pain Clinic Assessment: 1. History of Osteoarthritis: DENIES History of Rheumatoid Arthritis: Not Applicable 2. Height: 5 ft. 10 in. 177.8 cm. Weight: 169.0 lb. oz. 76.658 kg. Patient's BMI: 24.2 3. Vital Signs: BP: 161/92 Pulse: 51 Resp: 14 Temp: 02 Sat: 99 ECG Mon: 4. Pain Intensity: 1-2 5. Fall Risk: Dizziness: N Needs help standing or walking: N Fallen in the last 3 months: N Fall risk comments: 6. Patient on Blood Thinner: ELLE 7. History of Hypertension: Y 8. Opioid Therapy greater than 6 weeks: Y Opiate Contract Signed: 11/18/17 9. Risk Assessment Tool Provided: LOW RISK-0 10. Functional Assessment Tool: 11. Recreational Drug Use: Never Drug Type: Tobacco Use: Former Smoker Tobacco Type: Amount or Packs/day: How Many Years: Alcohol Use: No Frequency: Quant:
== END ==
LOC: PAIN 07:04
PROVIDERS: ATTEND Clinical Nurse Specialist Adult Health
DX: G62.9 Polyneuropathy, unspecified (principal); G61.0 Guillain-Barre syndrome; I48.91 Unspecified atrial fibrillation; Z79.891 Long term (current) use of opiate analgesic; Z79.01 Long term (current) use of anticoagulants; Z79.899 Other long term (current) drug therapy

== ENCOUNTER → 2021-08-28 | Outpatient (CLI) | payer OTHER, BC | LOC: SJCVCIMAG 07:42 | PROVIDERS: ATTEND Internal Medicine | DX: I08.0 Rheumatic disorders of both mitral and aortic valves (principal); I25.10 Atherosclerotic heart disease of native coronary artery without angina pectoris; I48.0 Paroxysmal atrial fibrillation; I10 Essential (primary) hypertension; E78.5 Hyperlipidemia, unspecified; G61.0 Guillain-Barre syndrome; K21.9 Gastro-esophageal reflux disease without esophagitis; Z87.891 Personal history of nicotine dependence; Z95.1 Presence of aortocoronary bypass graft; Z88.7 Allergy status to serum and vaccine; Z79.899 Other long term (current) drug therapy ==

== ENCOUNTER → 2021-10-24 | Outpatient (CLI) | payer OTHER, BC ==
[~2021-10-24] VITALS: Ht 177.8 cm; Wt 78.0 kg
[~2021-10-24] MED LIST changes: +TOPROL XL50 MG PO
[2021-10-24 10:25] VITALS: BP 151/87
--- NOTE | 2021-10-24 10:35 | NUR ---
Pain Clinic Assessment: 1. History of Osteoarthritis: DENIES History of Rheumatoid Arthritis: Not Applicable 2. Height: 5 ft. 10 in. 177.8 cm. Weight: 172.0 lb. oz. 78.019 kg. Patient's BMI: 24.7 3. Vital Signs: BP: 151/87 Pulse: 68 Resp: 14 Temp: 02 Sat: 100 ECG Mon: 4. Pain Intensity: 1 5. Fall Risk: Dizziness: N Needs help standing or walking: N Fallen in the last 3 months: N Fall risk comments: 6. Patient on Blood Thinner: ELIQUIS 7. History of Hypertension: Y 8. Opioid Therapy greater than 6 weeks: Y Opiate Contract Signed: 11/18/17 9. Risk Assessment Tool Provided: LOW RISK-0 10. Functional Assessment Tool: 11. Recreational Drug Use: Never Drug Type: Tobacco Use: Former Smoker Tobacco Type: Amount or Packs/day: How Many Years: Alcohol Use: No Frequency: Quant:
== END ==
LOC: PAIN 07:02
PROVIDERS: ATTEND Clinical Nurse Specialist Adult Health
DX: G62.9 Polyneuropathy, unspecified (principal); I48.91 Unspecified atrial fibrillation; F11.20 Opioid dependence, uncomplicated; Z86.16 Personal history of COVID-19; Z87.891 Personal history of nicotine dependence; Z88.8 Allergy status to other drugs, medicaments and biological substances; Z79.899 Other long term (current) drug therapy; Z79.01 Long term (current) use of anticoagulants